=== PATIENT | female | born 2000 | race Caucasian/White ===

== ENCOUNTER 2019-07-12 22:16 | Emergency (ER) | payer SELFPAY ==
[2019-07-12 22:18] VITALS: BP 164/90; PULSE 120; RESP 24; TEMP 36.4; O2SAT 97; BMI 41.0
[2019-07-12 22:28] VITALS: O2SAT 97
--- NOTE | 2019-07-12 22:42 | ED.DCSUM_ITS ---
- ER Visit Summary Date of Service: 07/12/19 Chief Complaint: [Cough and shortness of breath and chest pain] History of Present Illness: The patient is a 18 F [presents the emergency department with cough that she said for 2 days. Patient states that today she is felt short of breath throughout the day. She describes an achy discomfort in the center of her chest that is worse with arm movement as well as breathing. Cough is nonproductive. Patient denies any sick contacts. Patient's had no recent travel. Patient had no recent surgery. Patient states that she used to have history of asthma as a child. She does have an inhaler that she uses as needed. Patient has not had any exposures to novel coronavirus as far she knows. Patient denies sore throat or body aches. Eyes any vomiting or diarrhea.] Patient states that while at home she checked her oxygen saturation with her mother's pulse oximeter and it sat 83%. Physical Examination: [HEENT-PERRLA, EOMI. Cranial nerves II through XII grossly intact. TMs clear. Mucous membranes moist. No adenopathy. Cardiovascular-regular rate and rhythm without murmur or ectopy Lungs-clear to auscultation, chest wall stable without crepitus or subcu emphysema Abdomen-normoactive bowel sounds, soft, nontender, no rebound or rigidity, no peritoneal signs. Extremities-intact ?4, normal range of motion, normal pulses, atraumatic] Test Results: [Influenza screen was negative. Chest x-ray was normal. D-dimer was normal.] Emergency Department Course and Treatment: [Patient received albuterol MDI with 6 puffs. Patient received prednisone 40 mg p.o.] Patient ambulated in the department with pulse ox and she was not hypoxic. Treatment Plan: [Patient will be treated with prednisone. Patient to use albuterol MDI as needed for any wheezing. Patient advised to quarantine self for 2 weeks as I cannot rule out infection with novel coronavirus potentially.] Disposition: [Discharged home in stable condition. Patient advised to return if increasing shortness of breath or condition should worsen anyway.] Impression: [Dyspnea Viral URI Asthma exacerbation] This note was generated with [employer] dictation software. It may contain incorrect words, spelling, and punctuation that were not noted in review of the chart prior to signing ED Disposition - Plan for ED Patient: Referrals: Rama Damon MD [Primary Care Provider] -
--- NOTE | 2019-07-12 23:13 | RAD_ITS ---
STUDY: X-RAY CHEST REASON FOR EXAM: Female, 18 years old. PT C/O SOB, COUGH, MERLOS. HX OF CHILDHOOD ASTHMA TECHNIQUE: PA and lateral chest. COMPARISON: 01/04/2015. FINDINGS: The lungs are clear and expanded. There is no demonstrated pleural abnormality. Normal size heart. Normal mediastinum and alpesh. Normal visualized pulmonary arteries. Normal visualized aortic arch and descending thoracic aorta. Normal visualized thoracic spine. Normal visualized ribs, clavicles, and shoulders. There is no demonstrated abnormality of the visualized soft tissue structures of the upper abdomen. RAD/Chest PA and Lateral IMPRESSION: Normal x-ray examination of the chest. Electronically Signed: Suzi Salazar MD at 23:28 EDT Tel , Service support ,
[2019-07-12 23:50] LABS: D-Dimer Quantitative (DVT/PE) 0.37 FEU/ug/m (0.27-0.49)
--- NOTE | 2019-07-13 00:01 | ED.DEP ---
ED Disposition - Plan for ED Patient: Instructions: ED Upper Resp Infec No Abx Tx, ED Bronchitis Asthmatic Prescriptions: Prednisone [Deltasone] 20 mg PO BID #10 tab Prescription Printed Referrals: Rama Damon MD [Primary Care Provider] - 3-5 Days
[2019-07-13 00:06] VITALS: O2SAT 96
[2019-07-13] MEDS: predniSONE 20 MG Tablet 40 MG PO (00:10)
[2019-07-13 00:13] VITALS: PULSE 108; RESP 15; O2SAT 99
== END 2019-07-13 00:14 | disposition home or self-care (01) ==
PROVIDERS: Emergency Provider Emergency Medicine; PCP Pediatrics
DX: J45.901 Unspecified asthma with (acute) exacerbation (principal); J06.9 Acute upper respiratory infection, unspecified; Z79.51 Long term (current) use of inhaled steroids
CPT/HCPCS: 71046; 85379; 87804; 87807; 99284

== ENCOUNTER 2019-07-28 15:35 | Emergency (ER) | payer SELFPAY ==
[2019-07-28 15:35] VITALS: BP 145/98; PULSE 131; RESP 18; TEMP 37.1; O2SAT 97
[2019-07-28 15:36] VITALS: BP 145/98; PULSE 131; RESP 18; TEMP 37.1; O2SAT 97; BMI 41.0
[2019-07-28 16:04] VITALS: PULSE 105; RESP 14; O2SAT 97
--- NOTE | 2019-07-28 16:24 | ED.VISSUMM ---
- ER Visit Summary Date of Service: 07/28/19 Chief Complaint: Shortness of breath with a dry cough History of Present Illness: The patient is a 18 F who history of asthma and reflux. Patient states she has been short of breath last several days. Also body aches. Denies any fever. No chills. No chest pain. No leg pain or swelling. No history of DVT or PEs. No recent travel, surgery, hospitalization or immobilization. No control pills. Physical Examination: Well-appearing young female no acute distress. Vital signs stable. Pulse ox 97% on room air no signs hypoxia. H EENT exam normal. Neck nontender no lymphadenopathy. Lungs clear to auscultation bilaterally. Heart regular rhythm rate about 115. No murmur. Abdomen soft nontender normal bowel sounds no peritoneal signs. She is moving all 4 extremities.. Calves nontender without edema or cords. Neurologically she is awake alert with no focal motor deficits. Test Results: Chest x-ray portable 1 view shows no acute abnormality. Normal cardiac silhouette. Normal mediastinum. Normal lung queen. Read by myself. Emergency Department Course and Treatment: Patient is a normal exam. She has no risk factors. Repeat exam the patient is resting well at 5:30 PM. She is doing well. Treatment Plan: Follow-up with primary care physician if not improving. Disposition: Discharge Impression: Dyspnea secondary to viral URI This note was generated with [employer] dictation software. It may contain incorrect words, spelling, and punctuation that were not noted in review of the chart prior to signing ED Disposition - Plan for ED Patient: Referrals: Rama Damon MD [Primary Care Provider] -
--- NOTE | 2019-07-28 16:30 | RAD_ITS ---
STUDY: X-RAY CHEST REASON FOR EXAM: Female, 18 years old. C/O SOB, H/A, BODY ACHES, DRY COUGH, DENIES FEVER. TECHNIQUE: Single AP portable view of the chest. COMPARISON: 07/12/2019 FINDINGS: The lungs are clear and expanded. There is no demonstrated pleural abnormality. Normal size heart. Normal mediastinum and alpesh. Normal visualized pulmonary arteries. Normal visualized aortic arch and descending thoracic aorta. Normal visualized thoracic spine. Normal visualized ribs, clavicles, and shoulders. There is no demonstrated abnormality of the visualized soft tissue structures of the upper abdomen. RAD/Chest 1 View (Portable) IMPRESSION: Normal x-ray examination of the chest. Electronically Signed: Luke Chao MD at 17:07 EDT Tel , Service support ,
[2019-07-28 17:00] VITALS: PULSE 94; RESP 18; O2SAT 98
--- NOTE | 2019-07-28 17:38 | ED.DEP ---
ED Disposition - Plan for ED Patient: Disposition: Home or Assisted Living Instructions: ED Dyspnea Referrals: Rama Damon MD [Primary Care Provider] - 3-5 Days if not improving Additional Instructions: Your chest x-ray was normal today. Follow-up with your doctor if not return emergency department if you feel worse.
[2019-07-28 17:45] VITALS: PULSE 91; RESP 18; O2SAT 97
== END 2019-07-28 17:46 | disposition home or self-care (01) ==
PROVIDERS: Emergency Provider Emergency Medicine; PCP Pediatrics
DX: J06.9 Acute upper respiratory infection, unspecified (principal); K21.9 Gastro-esophageal reflux disease without esophagitis; J45.909 Unspecified asthma, uncomplicated; Z79.51 Long term (current) use of inhaled steroids; Z79.899 Other long term (current) drug therapy
CPT/HCPCS: 71045; 99283

== ENCOUNTER → 2020-06-26 10:46 | Outpatient (CLI) | payer MEDICAID, SELFPAY ==
--- NOTE | 2020-06-26 11:01 | RAD_ITS ---
STUDY: X-RAY - LEFT KNEE REASON FOR EXAM: Female, 19 years old. ACUTE KNEE PAIN TECHNIQUE: 3 view(s) of the knee. COMPARISON: None. FINDINGS: Normal visualized distal femur. Normal visualized proximal tibia and fibula. Normal proximal tibiofibular articulation. Normal medial femorotibial compartment. Normal lateral femorotibial compartment. Normal patellofemoral articulation. The soft tissue structures are unremarkable. RAD/Knee 3 Views IMPRESSION: Normal x-ray examination of the knee. Electronically Signed: Luke Chao MD at 11:30 EST Tel , Service support ,
== END ==
PROVIDERS: PCP Pediatrics; Referring Provider Nurse Practitioner Pediatrics; Visit Provider Nurse Practitioner Pediatrics
DX: M25.562 Pain in left knee (principal)
CPT/HCPCS: 73562

== ENCOUNTER 2025-04-09 17:53 | Emergency (ER) | payer SELFPAY ==
[2025-04-09 17:54] VITALS: BP 147/94; PULSE 91; RESP 18; TEMP 37.1; O2SAT 100; BMI 44.9
--- NOTE | 2025-04-09 18:23 | EX.ED.DYSGE1 ---
HPI History of Present Illness Chief Complaint: Nausea/Vomiting Informant: patient Narrative Narrative: Patient 24-year-old female presenting with generalized malaise, nausea and diarrhea. Patient states has been having symptoms for about 2 weeks. She states that her symptoms been progressing. They can be worse at nights. States she feels incredibly fatigued fatigued and weak. She has had a daily headache that she describes as pressure on the top of her head. She has had diarrhea for the past 2 days now. States she is going 4-5 times a day. She notes is not uncommon for her to have diarrhea sometimes it is her mother has IBS as well as diverticulosis. No family history reported of ulcerative colitis or Crohn's disease. She states that she intermittently does feel better when she takes [employer] brand of NyQuil. Has nausea and decreased appetite. Send subjective fevers. Was around her aunts a couple weeks ago who later got sick. She notes her last menstrual period was 03/31 through the . She does not think she be . She notes that she had a miscarriage back in November of this year. Denies any dysuria or hematuria. Notes that she has been urinating slightly less. States that she not been able to take it as much. Came in today because her mother saw her and was concerned and recommend she come to the ER. No cough or difficulty breathing reported. [facility] Medical History (Updated 04/09/25 @ 23:[address] Olivia Steele, ) Neuropathy Dysautonomia GERD (gastroesophageal reflux disease) Home Medications ?Medication ?Instructions ?Recorded ?Last Taken ?Type albuterol sulfate 2.5 mg/3 mL 2.5 mg inhalation Q4H PRN PRN Sob 07/12/19 07/12/19 History (0.083 %) solution for nebulization &/Or Wheezing naproxen 250 mg tablet 250 mg PO DAILY PRN PRN menstrual 07/28/19 Unknown History cycle omeprazole 20 mg capsule,delayed 20 mg PO DAILY 07/28/19 Unknown History release ondansetron 4 mg disintegrating 4 mg PO Q8H PRN PRN Nausea #10 tabs 04/09/25 Unknown Rx tablet Allergy/AdvReac Type Severity Reaction Status Date / Time latex Allergy Swelling Verified 04/09/25 17:53 Surgical History (Updated 04/09/25 @ 18:28 by Heidi Oreilly) H/O eye surgery Social History (Updated 04/09/25 @ 18:28 by Heidi Oreilly) household members: family current occupational status: employed Smoking Status: Never smoker ROS ROS ED Constitutional Constitutional ED: Reports chills and fever(s) ENT ENT ED: Denies ear pain, rhinorrhea or sore throat Cardiovascular Cardiovascular: Denies chest pain or palpitations Respiratory/Chest Respiratory/Chest: Denies cough or dyspnea Gastrointestinal Gastrointestinal: Reports abdominal pain, diarrhea and nausea; Denies vomiting Genitourinary Genitourinary ED: Reports other Details: Decreased urination ; Denies dysuria, hematuria or urinary frequency Musculoskeletal Musculoskeletal: Reports arthralgias and myalgias Integumentary Denies rash Neurologic Neurologic: Reports headache(s), weakness and other Details: States she feels shaky EXAM Physical Exam Const Vital Signs: 04/09/25 17:54 04/09/25 19:53 04/09/25 21:00 Temperature 98.8 F 98.8 F Temperature Source Oral Oral Pulse Rate 91 78 69 Respiratory Rate 18 16 16 Blood Pressure 147/94 H 118/78 Blood Pressure Mean 111 91 Pulse Ox 100 98 100 Oxygen Delivery Method Room Air Room Air 04/09/25 23:00 04/09/25 23:44 Temperature 98.7 F 97.8 F Temperature Source Oral Pulse Rate 70 92 Respiratory Rate 16 18 Blood Pressure 114/76 120/78 Blood Pressure Mean 88 92 Pulse Ox 98 98 Oxygen Delivery Method Room Air Positive well nourished and well developed General Appearance ED: well developed and NAD HEENT Reports TM's clear and dry mucous membranes HEENT Narrative: Normal oropharynx. Normal nares. Tympanic Membrane ED: Yes TM's clear Mouth ED: Yes dry mucous membranes Mouth: dry mucous membranes Eyes PERRL Neck supple and no JVD Chest Wall inspection of chest normal and palpation of chest normal Resp normal respiratory effort and clear to auscultation bilaterally Cardio regular rate, regular rhythm and no murmurs GI normal to inspection, nondistended, normoactive bowel sounds and non-tender Back/Spine no CVA tenderness Extremity normal to inspection Neuro oriented x3 Motor Exam: Negative for general weakness Psych mental status grossly normal Skin no rashes or lesions noted and no wounds MDM MDM MDM Narrative Medical decision making narrative: Patient with over 2 weeks of fatigue, intermittent headaches and generalized weakness. Reports he is developed diarrhea 2 days ago. Patient initially has mildly elevated blood pressure upon arrival. Vital signs otherwise normal. She is nontoxic-appearing. Differential includes electrolyte derangement, IBS, new onset diabetes, ADI, symptomatic anemia, urinary tract infection, and viral syndrome. Her abdomen is soft nontender, she is not a fever and she is a 2 weeks symptom so lower suspicion for acute surgical intra-abdominal process. Workup obtained including CBC, CMP and urinalysis as well as test. CBC shows a mild anemia the hemoglobin 11.6 which is nonspecific but I do not think low enough to cause her degree of symptoms. CMP shows a very mild transaminitis with an AST of 35 and ALT of 58. Again this is only mildly elevated and likely more related to fatty liver or diet. She does not have any tenderness in her right upper quadrant suggestive of acute biliary pathology. Lipase is normal low swished for pancreatitis. Normal kidney function. Glucose is 111 which is normal for nonfasting state. Patient is given IV fluids in the emergency room as well as Tylenol and Zofran. She has no vomiting in the emergency room. On repeat evaluation she states she still not feeling well. Her urinalysis shows contamination but is show 5-10 white blood cells. Her presentation is not consistent with renal colic given that she is not having back pain or really abdominal pain either. Urinalysis is not consistent with infection. Discussed further advanced imaging of her abdomen however at this time I do not think it is indicated emergently and patient is comfortable with this. At this time she did tell me that she has been having intermittent pain on the left side of her chest and her lung. Will add on chest x-ray ensure she is not a secondary pneumonia as well as EKG. Chest x-ray reviewed by myself as radiology does not show any acute process. EKG shows normal sinus rhythm. Patient be discharged home with Zofran. Counseled alternate ibuprofen and Tylenol as needed for symptom and pain control. Counseled that exact cause her symptoms is not clear but she should follow-up with PCP. Is given outpatient referral. Given return precautions. Discharged home in stable condition. Lab Data Attestation: I reviewed the patient's lab results. Labs: Laboratory Results - last 24 hr 04/09/25 04/09/25 18:19 19:41 WBC 8.1 RBC 4.23 Hgb 11.6 L Hct 37.2 MCV 87.9 MCH 27.4 MCHC 31.2 L RDW Std Deviation 48.8 H RDW Coeff of Sue 15.2 H Plt Count 413 MPV 10.6 Immature Gran % (Auto) 0.200 Neut % (Auto) 65.6 Lymph % (Auto) 27.3 Cataño % (Auto) 5.9 Eos % (Auto) 0.4 Baso % (Auto) 0.6 Absolute Neuts (auto) 5.3 Absolute Lymphs (auto) 2.21 Nucleated RBC % 0 Sodium 139 Potassium 3.9 Chloride 103 Carbon Dioxide 24.6 Anion Gap 11 BUN 15 Creatinine 0.76 Estim Creat Clear Calc 169.48 Est GFR (MDRD) Non-Af 111 BUN/Creatinine Ratio 19.4 Glucose 111 H Calcium 9.5 Total Bilirubin < 0.15 AST 35 H ALT 58 H Alkaline Phosphatase 66 Total Protein 7.4 Albumin 4.2 Globulin 3.2 Albumin/Globulin Ratio 1.3 Lipase 22 Urine Color Yellow Urine Clarity Sl. Cloudy Urine pH 6.0 Ur Specific [place] 1.020 Urine Protein 15 H Urine Glucose (UA) Normal Urine Ketones Negative Urine Occult Blood Negative Urine Nitrite Negative Urine Bilirubin Negative Urine Urobilinogen Normal Ur Leukocyte Esterase Negative Urine RBC 5-10 SEEN Urine WBC 0-5 SEEN Ur Squamous Epith Cells 5-10 SEEN Urine Bacteria 1+ Urine Mucus 1+ Urine Test Negative Radiography Chest X-Ray - ED: 2 View, Read by ED Physician, Read by Radiologist and No Acute Disease Diagnostic Testing: Clinical Impression(s) from Imaging Studies Chest X-Ray 04/09/25 22:10 IMPRESSION: Low lung volumes bilaterally likely secondary to patient body habitus. No focal lung consolidation. No pneumothorax. Reading Location: [facility] Rhythm Strip Rhythm Strip: Sinus Rhythm Rate: 73 Ectopy: None EKG Initial EKG: Attestation: I personally reviewed and interpreted this EKG as follows: Interpretation: Sinus Rhythm Comments: Normal sinus rhythm at a rate of 73 bpm Normal axis Normal intervals Normal ST segments Discharge Plan Triage Chief Complaint: Nausea/Vomiting ED Provider: Olivia Steele Dx/Rx/DC Orders Clinical Impression: Nausea, Malaise and fatigue Instructions: ED Viral Syndrome (Adult), ED Weakness Uncertain Cause Prescriptions: New ondansetron 4 mg tablet,disintegrating 4 mg PO Q8H PRN PRN (Reason: Nausea) Qty: 10 0RF No Action albuterol sulfate 2.5 MG/3 ML solution for nebulization 2.5 mg inhalation Q4H PRN PRN (Reason: Sob &/Or Wheezing) naproxen 250 MG tablet 250 mg PO DAILY PRN PRN (Reason: menstrual cycle) omeprazole 20 MG capsule,delayed release(DR/EC) 20 mg PO DAILY Primary Care Provider: Talisha Marroquin NP Referrals: Lara Galarza MD [Med Staff - Active Staff, Internal Medicine] Talisha Marroquin NP, [employer] [Primary Care Provider, Family Practice] Activity Restrictions/Additional Instructions: Workup did not show an obvious cause of your symptoms and was largely reassuring. Please follow-up with family medicine. Please return if you have worsening symptoms. Print Language: Hebrew Disposition Disposition: Home, Self Care Discharge Date/Time: 04/09/25 23:47
[2025-04-09] MEDS: 0.9% Normal Saline (1000mL) 1,000 ML 999 ML IV (18:27)
--- OUTSIDE RECORDS SUMMARY | 2025-04-09 18:40 | XMS RPT_ITS | CCD ---
Author Organization [facility]iniSyky Care Team Providers Care Leather Seasoner Name Role Phone ZEB SO, DR RAMA Silva Primary Care Physician SHAUNNA ZARATEN-JANET, GUDELIA Primary Care Physician ROBIN DEWITT, TALISHA Romero Attending Kathleen MARROQUIN APRN-ONLINE EDITOR, TALISHA Romero Primary Care Kathleen DEWITT, TALISHA Romero Primary Care Physician ROBIN DEWITT, TALISHA Romero Attending Kathleen DEWITT, TALISHA Romero Primary Care Dr. Rama Goodwin MD Primary Care Provider Dr. Rama Carrington MD Referring Provider Morro Merino Attending Provider Morro Merino Attending Unavailable Rama Carrington Referring Unavailable Rama Carrington Primary Care Unavailable Rama Carrington Referring Unavailable Rama Carrington Primary Care Unavailable Morro Merino Attending Unavailable PHYSICIAN, NONE Primary Care Physician Unavailab osmin MARROQUIN APRN-JANET, TALISHA Romero Attending Kathleen labosmin MARROQUIN APRN-JANET, TALISHA Romero Primary Care DR MARCELLA Stark MD Attending Unavailab osmin MARROQUIN APRN-JANET, TALISHA Romero Primary Care Kathleen MARROQUIN APRN-JANET, TALISHA Romero Attending Kathleen labosmin MARROQUIN APRN-ONLINE EDITOR, TALISHA Romero Primary Care Jacquevascooter MARROQUIN APRN-ONLINE EDITOR, TALISHA Romero Attending Kathleen labosmin MARROQUIN APRN-ONLINE EDITOR, TALISHA Romero Primary Care Jacquevai labosmin MARROQUIN APRN-ONLINE EDITOR, TALISHA Romero Attending Jacquevai labosmin MARROQUIN APRN-ONLINE EDITOR, TALISHA Romero Primary Care Kathleen MARROQUIN APRN-JANET, TALISHA Romero Attending Kathleen [facility]QUIN [facility] TALISHA Romero Primary Care Kathleen TEJADA APRN-ONLINE EDITOR, DELIA Attending Unavailcarissa MARROQUIN [employer], TALISHA Romero Primary Care Unavai lable MARROQUIN [employer] AS[employer]ER-ONLINE EDITOR, TALISHA Romero Primary Care Unavai labosmin MARROQUIN [employer]ER-ONLINE EDITOR, TALISHA Romero Attending Kathleen labosmin PHYSICIAN, NONE Primary Care Unavailable TAMEKA SO, KEMAR Coker Attending Unavail gilberto KANG MD, DR NARANJO Attending Unavailab osmin MARROQUIN [employer]ER-ONLINE EDITOR, TALISHA Romero Primary Care Kathleen marshall PHYSICIAN, NONE Primary Care Unavailable ROBIN FELICIANOJANET, TALISHA Romero Attending Kathleen MARROQUIN APRNJANET, TALISHA Romero Primary Care Kathleen LUGO MD, GUERLINE Attending Unavailable Allergies Allergy Classification Reported Allergen(s) Allergy Type Date of Onset Reaction(s) Facility (19 sources) Latex; Translations: [latex] Allergy to substance 0 Swelling [facility] (5 sources) Caroleen Food allergy Stomach ache (finding) [facility] Medications Current Medications Medication Drug Class(es) Dates Sig (Normalized) Sig (Original) albuterol 0.83 mg/ml inhalation solution (2 sources) beta2-Adrenergic Agonist Start: 07-12-2019 take 2.5 mg by inhalation every four hours as needed for wheezing Albuterol Sulfate 2.5 MG/3 ML solution for nebulization Active 2.5 mg inhalation EVERY 4 HOURS NEEDED as needed for Sob &/Or Wheezing July 12, 2019 12:00am amitriptyline hydrochloride 50 mg oral tablet (1 source) Tricyclic Antidepressant Start: 03-07-2022 End: 03-02-2023 amitriptyline 50 mg oral tablet Dose : 50 mg = 1 tab(s), Oral, qHS, # 90 tab(s), 3 Refill(s), [facility]acy: [facility] #[id number], 173.5, cm, 02/21/22 11:16:00 EST, Height Start Date: 03/07/22 Stop Date: 03/02/23 Status: Ordered 24 hr buPROPion hydrochloride 150 mg extended release oral tablet (3 sources) Aminoketone Start: 06-20-2022 End: 06-15-2023 take 1 tablet by mouth every hour, then take 1 tablet by mouth every twenty-four hours buPROPion 150 mg/24 hours (XL) oral tablet, extended release Dose : 150 mg = 1 tab(s), Oral, q24h, # 90 tab(s), 3 Refill(s), Pharmacy: [facility] #[id number], 173.5, cm, 06/20/22 11:19:00 EST, Height, kg, 06/20/22 11:19:00 EST, Dosing Weight Start Date: 06/20/22 Stop Date: 06/15/23 Status: Ordered Start: 02-07-2022 End: 05-08-2022 take 1 tablet by mouth every hour, then take 1 tablet by mouth every twenty-four hours buPROPion 150 mg/24 hours (XL) oral tablet, extended release Dose : 150 mg = 1 tab(s), Oral, q24h, # 30 tab(s), 2 Refill(s), [facility]acy: [facility] #[id number], 173.5, cm, 02/07/22 15:12:00 EDT, Height Start Date: 02/07/22 Stop Date: 05/08/22 Status: Ordered DME MISCellaneous (10 sources) Start: 05-18-2022 DME MISCellane ous See Instructions, pair of compression stockings - either 10-15 or 15-20mmHG, # 1 EA, 0 Refill(s), Lower leg edema, 139.4 Start Date: 05/18/22 Status: Ordered Medication Dispense Status: Completed Quantity: 1.0 Unit: EA Total Allowed Fills: 1 Fills Dispensed: 0 Indications: Localized edema; Start: 05-18-2022 DME MISCellane ous See Instructions, pair of compression stockings - either 10-15 or 15-20mmHG, # 1 EA, 0 Refill(s), Lower leg edema, 139.4 Start Date: 05/18/22 Status: Ordered gabapentin 300 mg oral capsule (1 source) Anti-epileptic Agent Start: 07-28-2024 gabapenti n 300 mg oral capsule Dose : 300 mg = 1 cap(s), Oral, BID, # 60 cap(s), 0 Refill(s), 136.4 Start Date: 07/28/24 Status: Ordered Medication Dispense Status: Completed Quantity: 60.0 Unit: cap(s) Total Allowed Fills: 1 Fills Dispensed: 0 magnesium oxide 400 mg oral tablet (10 sources) Start: 11-22-2023 magnesium oxid e 400 mg oral tablet Dose : 400 mg = 1 tab(s), 0 Refill(s) Start Date: 11/22/23 Status: Ordered Start: 02-21-2022 End: 06-15-2023 magnesium oxide 400 mg oral tablet Dose : 400 mg = 1 tab(s), Oral, qDay, X 90 day(s), # 90 tab(s), 3 Refill(s), 06/15/23 11:53:00 EST, Pharmacy: [facility] #[id number], 173.5, cm, 06/20/22 11:19:00 EST, Height, kg, 06/20/22 11:19:00 EST, Dosing Weight Start Date: 06/20/22 Stop Date: 06/15/23 Status: Ordered metFORMIN hydrochloride 500 mg oral tablet (8 sources) Biguanide Start: 11-22-2023 End: 02-20-2024 MetFORMIN (Eqv-Fortamet) 500 mg oral tablet, EXTENDED RELEASE Dose : 500 mg = 1 tab(s), Oral, qDay, # 90 tab(s), 0 Refill(s), Pharmacy: [facility] #[id number], 175.8, cm, 03/02/23 10:34:00 EST, Height, kg, 03/02/23 10:34:00 EST, Dosing Weight Start Date: 11/22/23 Stop Date: 02/20/24 Status: Ordered Start: 06-20-2022 End: 12-17-2022 MetFORMIN (Eqv-Fortamet) 500 mg oral tablet, EXTENDED RELEASE Dose : 500 mg = 1 tab(s), Oral, qDay, # 90 tab(s), 1 Refill(s), Pharmacy: [facility] #[id number], 173.5, cm, 06/20/22 11:19:00 EST, Height Start Date: 06/20/22 Stop Date: 12/17/22 Status: Ordered naproxen 250 mg oral tablet (5 sources) Nonsteroidal Anti-inflammatory Drug Start: 07-28-2019 take 1 tablet by mouth once daily as needed Naproxen 250 MG tablet Active 250 mg PO DAILY NEEDED as needed for menstrual cycle July 28, 2019 12:00am propranolol hydrochloride 20 mg oral tablet (7 sources) beta-Adrenergic Nii Start: 06-03-2024 End: 02-28-2025 propranolol 20 mg oral tablet Dose : 20 mg = 1 tab(s), Oral, BID, # 180 tab(s), 2 Refill(s), [id number], 175, cm, 06/03/24 12:30:00 EST, Height, kg, 06/03/24 12:30:00 EST, Dosing Weight Start Date: 06/03/24 Stop Date: 02/28/25 Status: Ordered Medication Dispense Status: Completed Quantity: 180.0 Unit: tab(s) Total Allowed Fills: 3 Fills Dispensed: 0 Start: 12-18-2023 propranolol 20 mg oral tablet Dose : 20 mg = 1 tab(s), Oral, BID, # 60 tab(s), 2 Refill(s), Pharmacy: [facility] #[id number], 175, cm, 12/18/23 9:38:00 EDT, Height, kg, 12/18/23 9:38:00 EDT, Dosing Weight Start Date: 12/18/23 Status: Ordered Vitamin D3 50 mcg (2000 intl units) oral capsule (1 source) Start: 11-22-2023 Vitamin D3 50 mcg (2000 intl units) oral capsule Dose : 50 mcg = 1 cap(s), Oral, qDay, # 60 cap(s), 0 Refill(s) Start Date: 11/22/23 Status: Ordered Completed/Discontinued Medications Medication Drug Class(es) Dates Sig (Normalized) Sig (Original) albuterol MDI (90 mcg/inh) CFC free inhalation aerosol (11 sources) Start: 11-22-2023 End: 02-20-2024 take 2 puff(s) by inhalation every four hours as needed for wheezing albuterol MDI (90 mcg/inh) CFC free inhalation aerosol 2 puff(s), Inhalation, q4h, PRN as needed for wheezing, # 18 gram(s), 0 Refill(s), Pharmacy: [facility] #[id number], Shortness of breath Chest tightness, 175.8, cm, 03/02/23 10:34:00 EST, Height, kg, 03/02/23 10:34:00 EST, Dosing Weight Start Date: 11/22/23 Stop Date: 02/20/24 Status: Ordered Medication Dispense Status: Completed Quantity: 18.0 Unit: g Total Allowed Fills: 1 Fills Dispensed: 0 Indications: Shortness of breath; Other chest pain; Start: 11-22-2023 End: 02-20-2024 take 2 puff(s) by inhalation every four hours as needed for wheezing albuterol MDI (90 mcg/inh) CFC free inhalation aerosol 2 puff(s), Inhalation, q4h, PRN as needed for wheezing, # 18 gram(s), 0 Refill(s), Pharmacy: [facility] #[id number], Shortness of breath Chest tightness, 175.8, cm, 03/02/23 10:34:00 EST, Height, kg, 03/02/23 10:34:00 EST, Dosing Weight Start Date: 11/22/23 Stop Date: 02/20/24 Status: Ordered Start: 06-20-2022 End: 06-15-2023 take 2 puff(s) by inhalation every six hours as needed for wheezing albuterol MDI (90 mcg/inh) CFC free inhalation aerosol 2 puff(s), Inhalation, q6hr, PRN as needed for wheezing, # 18 gram(s), 11 Refill(s), Pharmacy: [facility] #[id number], 173.5, cm, 06/20/22 11:19:00 EST, Height Start Date: 06/20/22 Stop Date: 06/15/23 Status: Ordered Start: 02-07-2022 take 1-2 puff(s) by mouth every four hours for wheezing albuterol MDI (90 mcg/inh) CFC free inhalation aerosol inhale 1 to 2 puffs by mouth and INTO THE LUNGS every 4 hours if needed for wheezing Start Date: 02/07/22 Status: Ordered B2-400 oral capsule (11 sources) Start: 07-28-2024 End: 10-26-2024 B2-400 oral capsule Dose : 4 00 mg = 1 cap(s), Oral, qDay, # 90 cap(s), 0 Refill(s), Pharmacy: [facility] #[id number], 175, cm, 06/30/24 12:37:00 EDT, Height, kg, 06/30/24 12:37:00 EDT, Dosing Weight Start Date: 07/28/24 Stop Date: 10/26/24 Status: Ordered Medication Dispense Status: Completed Quantity: 90.0 Unit: cap(s) Total Allowed Fills: 1 Fills Dispensed: 0 Start: 03-02-2023 End: 05-31-2023 B2-400 oral capsule Dose : 4 00 mg = 1 cap(s), Oral, qDay, # 90 cap(s), 0 Refill(s), Pharmacy: [facility] #[id number], 175.8, cm, 03/02/23 10:34:00 EST, Height, kg, 03/02/23 10:34:00 EST, Dosing Weight Start Date: 03/02/23 Stop Date: 05/31/23 Status: Ordered Start: 06-20-2022 End: 06-15-2023 B2-400 oral capsule Dose : 4 00 mg = 1 cap(s), Oral, qDay, # 90 cap(s), 3 Refill(s), Pharmacy: [facility] #[id number], 173.5, cm, 06/20/22 11:19:00 EST, Height, kg, 06/20/22 11:19:00 EST, Dosing Weight Start Date: 06/20/22 Stop Date: 06/15/23 Status: Ordered Start: 02-21-2022 End: 02-16-2023 B2-400 oral capsule Dose : 4 00 mg = 1 cap(s), Oral, qDay, # 90 cap(s), 3 Refill(s), Pharmacy: [facility] #[id number], 173.5, cm, 02/21/22 11:16:00 EST, Height Start Date: 02/21/22 Stop Date: 02/16/23 Status: Ordered ergocalciferol 1.25 mg oral capsule (10 sources) Provitamin D2 Compound Start: 07-28-2024 End: 10-26-2024 ergocalciferol 50,000 intl units (1.25 mg) oral capsule Dose : 50,000 International_Unit = 1 cap(s), Oral, qWeek, # 13 cap(s), 0 Refill(s), Pharmacy: [facility] #[id number], 175, cm, 06/30/24 12:37:00 EDT, Height, kg, 06/30/24 12:37:00 EDT, Dosing Weight Start Date: 07/28/24 Stop Date: 10/26/24 Status: Ordered Medication Dispense Status: Completed Quantity: 13.0 Unit: cap(s) Total Allowed Fills: 1 Fills Dispensed: 0 Start: 12-18-2023 End: 03-17-2024 ergocalciferol 50,000 intl u nits (1.25 mg) oral capsule Dose : 50,000 International_Unit = 1 cap(s), Oral, qWeek, # 13 cap(s), 0 Refill(s), Pharmacy: [facility] #[id number], 175, cm, 12/18/23 9:38:00 EDT, Height, kg, 12/18/23 9:38:00 EDT, Dosing Weight Start Date: 12/18/23 Stop Date: 03/17/24 Status: Ordered Start: 02-21-2022 End: 06-15-2023 ergocalciferol 50 mcg (2000 intl units) oral capsule Dose : 100 mcg = 2 cap(s), Oral, qDay, with food, # 180 cap(s), 3 Refill(s), Pharmacy: [facility] #[id number], 173.5, cm, 06/20/22 11:19:00 EST, Height, kg, 06/20/22 11:19:00 EST, Dosing Weight Start Date: 06/20/22 Stop Date: 06/15/23 Status: Ordered meloxicam 15 mg oral tablet (6 sources) Nonsteroidal Anti-inflammatory Drug Start: 12-04-2023 End: 01-03-2024 meloxicam 15 mg oral tablet Dose : 15 mg = 1 tab(s), Oral, qDay, # 30 tab(s), 0 Refill(s), Pharmacy: [facility] #[id number], Costochondritis, 175.6, cm, 11/29/23 11:13:00 EDT, Height, kg, 11/29/23 11:13:00 EDT, Dosing Weight Start Date: 12/04/23 Stop Date: 01/03/24 Status: Ordered omeprazole 40 mg delayed release oral capsule (13 sources) Proton Pump Inhibitor Start: 07-28-2024 End: 10-26-2024 omeprazole 40 mg oral delayed release capsule Dose : 40 mg = 1 cap(s), Oral, BID, INCREASED DOSE, # 180 cap(s), 0 Refill(s), [facility]acy: [facility] #[id number], Hiatal hernia with GERD, 175, cm, 06/30/24 12:37:00 EDT, Height, kg, 06/30/24 12:37:00 EDT, Dosing Weight Start Date: 07/28/24 Stop Date: 10/26/24 Status: Ordered Medication Dispense Status: Completed Quantity: 180.0 Unit: cap(s) Total Allowed Fills: 1 Fills Dispensed: 0 Indications: Diaphragmatic hernia without obstruction or gangrene; Start: 11-22-2023 End: 05-20-2024 omeprazole 40 mg oral delaye d release capsule Dose : 40 mg = 1 cap(s), Oral, BID, INCREASED DOSE, # 180 cap(s), 1 Refill(s), [facility]acy: [facility] #[id number], Hiatal hernia with GERD, 175.8, cm, 03/02/23 10:34:00 EST, Height, kg, 03/02/23 10:34:00 EST, Dosing Weight Start Date: 11/22/23 Stop Date: 05/20/24 Status: Ordered Start: 07-28-2019 End: 02-16-2023 take 1 capsule by mouth once daily Omeprazole 20 MG capsule,delayed release(DR/EC) Active 20 mg PO DAILY July 28, 2019 12:00am ondansetron 4 mg oral tablet (1 source) Serotonin-3 Receptor Antagonist Start: 07-28-2024 End: 08-01-2024 ondansetron 4 mg oral tablet Dose : 4 mg = 1 tab(s), Oral, q8h, PRN Nausea, # 12 tab(s), 0 Refill(s), Pharmacy: [facility] #[id number], 175, cm, 06/30/24 12:37:00 EDT, Height, kg, 06/30/24 12:37:00 EDT, Dosing Weight Start Date: 07/28/24 Stop Date: 08/01/24 Status: Ordered Medication Dispense Status: Completed Quantity: 12.0 Unit: tab(s) Total Allowed Fills: 1 Fills Dispensed: 0 Problems Active Problems Problem Classification Problem Date Documented Date Episodic/Chronic Abdominal hernia (5 sources) Hernia of abdominal cavity 12-19-2023 Episodic Asthma (13 sources) Mild intermittent asthma 06-20-2022 Chronic Blindness and vision defects (10 sources) Visual disturbance; Translations: [Other visual disturbances] Episodic Cardiac dysrhythmias (20 sources) Palpitations; Translations: [Tachycardia] 02-08-2022 Episodic Coma; stupor; and brain damage (15 sources) Daytime somnolence 02-22-2022 Episodic Diabetes mellitus without complication (20 sources) Hyperglycemia; Translations: [Prediabetes] 02-22-2022 Episodic Disorders of lipid metabolism (16 sources) Hyperlipidemia; Translations: [Hyperlipidemia, unspecified] 02-22-2022 Chronic Headache; including migraine (15 sources) Migraine 02-22-2022 Chronic Malaise and fatigue (10 sources) Fatigue; Translations: [Other fatigue] Episodic Mood disorders (20 sources) Depressive disorder; Translations: [Major depression, single episode] 02-22-2022 Chronic Noninfectious gastroenteritis (15 sources) Chronic diarrhea 02-08-2022 Episodic Nonspecific chest pain (1 source) Chest pain; Translations: [Chest pain, unspecified] Onset: 01-19-2022 Episodic Nutritional deficiencies (15 sources) Vitamin D deficiency 02-22-2022 Chronic Nutritional deficiencies (3 sources) Iron deficiency 04-25-2024 Episodic Other circulatory disease (11 sources) Elevated blood-pressure reading without diagnosis of hypertension 12-18-2023 Episodic Other connective tissue disease (3 sources) Musculoskeletal test abnormal; Translations: [Other symptoms and signs involving the musculoskeletal system] Episodic Other connective tissue disease (8 sources) Muscle weakness of limb 02-01-2024 Episodic Other female genital disorders (1 source) Abnormal uterine bleeding; Translations: [Abnormal uterine and vaginal bleeding, unspecified] Onset: 12-12-2024 Chronic Other female genital disorders (1 source) Abnormal uterine and vaginal bleeding, unspecified; Translations: [Abnormal uterine and vaginal bleeding, unspecified] Onset: 12-12-2024 Chronic Other liver diseases (15 sources) Elevated liver enzymes level 02-22-2022 Episodic Other lower respiratory disease (13 sources) Rib pain 06-20-2022 Episodic Other lower respiratory disease (8 sources) Dyspnea 02-01-2024 Episodic Other nervous system disorders (1 source) Disorder of autonomic nervous system 05-12-2024 Chronic Other nutritional; endocrine; and metabolic disorders (15 sources) Body mass index 40+ - severely obese 02-08-2022 Chronic Other nutritional; endocrine; and metabolic disorders (13 sources) Severe obesity 06-20-2022 Chronic Other skin disorders (15 sources) Acanthosis nigricans 02-08-2022 Episodic Residual codes; unclassified (3 sources) Obstructive sleep apnea syndrome 04-25-2024 Chronic Residual codes; unclassified (14 sources) Edema of lower leg 05-18-2022 Episodic Residual codes; unclassified (13 sources) Did not attend 05-29-2022 Episodic Comment on above: 10/24/22 Unclassified (15 sources) Mental state finding 02-07-2022 Unclassified (8 sources) Non-smoker 02-01-2024 Past or Other Problems Problem Classification Problem Date Documented Date Episodic/Chronic Conditions associated with dizziness or vertigo (13 sources) Dizziness and giddiness; Translations: [Dizziness and giddiness] Onset: 02-18-2024 Episodic Other connective tissue disease (1 source) Other symptoms and signs involving the musculoskeletal system; Translations: [Other symptoms and signs involving the musculoskeletal system] Onset: 02-18-2024 Episodic Results Test Name Value Interpretation Reference Range Facility LABORATORYOrdered By: Mumtaz Frazier on 12-12-2024 HCG ( test) Ql Negative (12/12/24 2:05 PM) Normal AO Manual Urine SS test (u) int Not detected Invalid Interpretation Code AO Manual Urine SS PREGUon 12-12-2024 HCG ( test) Ql (U) Negative Normal [facility] Comment on above: Performed By: #### F E, A1C, IBC, FERR #### [address] [address] test (u) int Not detected Invalid Interpretation Code [facility] Comment on above: Performed By: #### F E, A1C, IBC, FERR #### [address] [address] Office Visit Reporton 2024 Office Visit Report [facility] 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 Allergies latex Allergy (Verified 07/12/19 22:21) Swelling Office Procedures [facility] Billing Sheet Testing Breath Alcohol Test Pre-Employment: Yes Pre-Employment Drug Screen: Yes Pre-Employment PE: Yes 11/20/2436 Date Morro Trejoignac Signature: Date (if applicable) CC: Normal [facility] Urgent Care Visit Reporton 0 11-14-2024 Urgent Care Visit Report [facility] [address], [address] [place] [address] OFFICE VISIT Date of Service: 11/14/24 MR#: [id number] Acct: [id number] Name: ASHLEY MEHTA SEPTEMBER Rep #: [id number] : 2000 Provider: CHANTAL Miller Age/Sex: 24/F Location: [facility] Status: Signed Intake Vital Signs 07/28/19 15:36 Height 5 ft 9 in 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 Please see corresponding scanned documents with today's date. Office Procedures Physical Exam Coding PE Coding Pre-employment PE: Yes Coding Level of Care Code Attention Abdiaziz Diagnoses Encounter for pre-employment health screening examination Z02.1 Assessment and Plan Assessment and Plan (1) Encounter for pre-employment health screening examination: Status: Acute 11/14/24 1545 Date Morro Ramos Signature: Date (if applicable) CC: Normal [facility] METon 07-28-2024 Methylmalonic Acid 177 nmol/L Normal 0-378 [facility] Comment on above: Result Comment: This test was developed and its performance characteristics determined by [facility]. It has not been cleared or approved by the Food and Drug Administration. Performed At: [address] [id number] Obi Perez MD Ph:[phone] Performed By: #### F E, A1C, IBC, FERR #### [address] [address] KEPPRAon 07-24-2024 Levetiracetam Lvl <2.0 Low 10.0-40.0 [facility] Comment on above: Order Comment: lopez d 3 times patient's mailbox is full and needs to come back for recollect. Order is in redraw file. - KK 07/23/2024 0931AM Result Comment: Perf ormed At: [address] [id number] Obi Perez MD Ph:[phone] Performed By: #### F E, A1C, IBC, FERR #### [address] [address] ACEon 07-23-2024 HONEY 46 U/L Normal 14-82 [facility] Comment on above: Result Comment: Perf ormed At: [facility] [address] [id number] Barby Flores PhD Ph:[phone] Performed By: #### F John Paul, A1C, IBC, FERR #### [address] [address] ANAIFSon 07-23-2024 Antinuclear Ab Screen Negative Normal Negative [facility] Comment on above: Result Comment: Anti -nuclear antibody test is used as an aid in diagnosis of systemic autoimmune diseases. Where positive and clinically warranted, follow-up using disease-specific testing is recommended. Low positive titers are not uncommon with advanced age, certain chronic infections, and malignancies among others. Test methodology: Indirect fluorescence immunoassay (IFA) using HEp-2 cells. Performed By: [facility] [address] [place] [address] Die Cast Operator: Jorge Clarke III, M.D. CLIA#: [id number] Performed By: #### F John Paul, A1C, IBC, FERR #### [address] [address] ENDOon 07-23-2024 TTG Ab (IgA) <4.0 Normal <=3.9 [facility] Comment on above: Result Comment: Effe ctive 11/06/2022: Evaluation of Transglutaminase Ab (IgA) results: Negative: Less than 4.0 Weak positive: 4.0 to 10.0 Positive: Greater than 10.0 Transglutaminase Ab is present in approximately 95% to 100% of patients with celiac disease and 80% of patients with dermatitis herpetiformis. The antibody is rarely found in other conditions. Transglutaminase Ab levels will decrease or increase depending on the removal or reintroduction of gluten into the diet. Patients who are IgA deficient develop celiac disease more frequently than individuals who have an intact IgA system. Therefore, gliadin and transglutaminase IgA antibodies may be absent in patients with celiac disease. IgG antibodies to gliadin are especially helpful in IgA deficient patients. These test results were obtained with the [employer] QUANTA Lite R-tTG IgA SILAS. R-tTG IgA values obtained with different manufacturers' assay methods may not be used interchangeably. Performed By: #### F E, A1C, IBC, FERR #### [id number] [place], [place] [address] GLIADon 07-23-2024 Gliadin Ab IgA <20 Normal <=19 [facility] Comment on above: Result Comment: Glia din IgG and IgA Ab Interpretation (effective 03/11/07): Result Units Negative <20 Weak Positive 20-30 Moderate to Strong Positive >30 Both IgG and IgA antibodies to gliadin are present in most patients with celiac disease (CD). However, antibody to gliadin may be present in Crohn's disease, dermatitis herpetiformis or in subjects with no clinical evidence of intestinal disease. In healthy individuals with a family history of CD, the antibodies may precede the clinical onset of disease in approximately 25% of the subjects. Gliadin antibody levels will decrease or increase depending on the removal or reintroduction of gluten into the diet. Patients who are IgA deficient develop celiac disease more frequently than individuals who have an intact IgA system. Therefore, gliadin and transglutaminase IgA antibodies may be absent in patients with celiac disease. IgG antibodies to gliadin are especially helpful in IgA deficient patients. A negative result indicates no gliadin antibody or levels below the negative cut-off of the assay. Results of this assay should be used in conjunction with clinical findings and other serological tests. These test results were obtained with the [employer] 24VA QUANTA Lite Gliadin IgG II and Gliadin IgA II. Gliadin values obtained with different manufacturers' assay methods may not be used interchangeably. Performed By: #### F E, A1C, IBC, FERR #### [address] [address] Gliadin Ab IgG <20 Normal <=19 [facility] Comment on above: Result Comment: Glia din IgG and IgA Ab Interpretation (effective 03/11/07): Result Units Negative <20 Weak Positive 20-30 Moderate to Strong Positive >30 Both IgG and IgA antibodies to gliadin are present in most patients with celiac disease (CD). However, antibody to gliadin may be present in Crohn's disease, dermatitis herpetiformis or in subjects with no clinical evidence of intestinal disease. In healthy individuals with a family history of CD, the antibodies may precede the clinical onset of disease in approximately 25% of the subjects. Gliadin antibody levels will decrease or increase depending on the removal or reintroduction of gluten into the diet. Patients who are IgA deficient develop celiac disease more frequently than individuals who have an intact IgA system. Therefore, gliadin and transglutaminase IgA antibodies may be absent in patients with celiac disease. IgG antibodies to gliadin are especially helpful in IgA deficient patients. A negative result indicates no gliadin antibody or levels below the negative cut-off of the assay. Results of this assay should be used in conjunction with clinical findings and other serological tests. These test results were obtained with the [employer] QUANTA Lite Gliadin IgG II and Gliadin IgA II. Gliadin values obtained with different manufacturers' assay methods may not be used interchangeably. Performed By: #### Fly Coker, A1C, IBC, FERR #### [place] [address] IFESon 07-23-2024 IFES Interpretation Immunofixation electrophoresis of serum shows the presence of only polyclonal immunoglobulins (IgG,A,M,Radom and Lambda), No monoclonal protein detected. Normal [facility] Comment on above: Result Comment: Elec tronically Signed by: MARISSA OHARA MD 07/23/2024 15:16 EDT Performed By: #### Fly Coker, A1C, IBC, FERR #### [place] [address] B12on 07-22-2024 Cobalamin (Vitamin B12) [Mass/Vol] 1072 pg/mL High 211-911 [facility] Comment on above: Performed By: #### Fly Coker, A1C, IBC, FERR #### [address] [address] FOLon 07-22-2024 Folate 7.14 ng/mL Normal 5.38-24.00 [facility] Comment on above: Performed By: #### Fly Coker, A1C, IBC, FERR #### [place] [id number] B1WBon 04-28-2024 Vitamin B1 Whl Bld 112.4 nmol/L Normal 66.5-200.0 [facility] Comment on above: Result Comment: This test was developed and its performance characteristics determined by [employer]. It has not been cleared or approved by the Food and Drug Administration. Performed At: [facility] [id number] Obi Perez MD Ph:[phone] Performed By: #### F E, A1C, IBC, FERR #### [place] [address] LMERLYon 04-26-2024 Lyme Total Antibody KAMRON Negative Normal Negative [facility] Comment on above: Result Comment: Lyme antibodies not detected. Reflex testing is not indicated. No laboratory evidence of infection with B. burgdorferi (Lyme disease). Negative results may occur in patients recently infected (less than or equal to 14 days) with B. burgdorferi. If recent infection is suspected, repeat testing on a new sample collected in 7 to 14 days is recommended. Performed At: [facility] [address] [id number] Barby Flores PhD Ph:[phone] Performed By: #### F E, A1C, IBC, FERR #### [place] [address] .Auto Diffon 04-25-2024 Basophil, Absolute 0.1 10 3/mcL Normal 0.0-0.2 [facility] Comment on above: Performed By: #### F ERR, CBC, ANEU, IBC, PBNP, MG, ADIFF, LIPID #### [place] [address] #### LATRELL #### [address] [address] Basophils/100 WBC (Bld) 0.7 % Normal 0.0-2.5 [facility] Comment on above: Performed By: #### F ERR, CBC, ANEU, IBC, PBNP, MG, ADIFF, LIPID #### [place] [address] #### LATRELL #### [address] [address] Eosinophil, Absolute 0.1 10 3/mcL Normal 0.0-0.7 [facility] Comment on above: Performed By: #### F ERR, CBC, ANEU, IBC, PBNP, MG, ADIFF, LIPID #### [address] [address] #### LATRELL #### [address] [address] Eosinophils/100 WBC (Bld) 0.6 % Normal 0.0-7.0 [facility] Comment on above: Performed By: #### F ERR, CBC, ANEU, IBC, PBNP, MG, ADIFF, LIPID #### [place] [address] #### LATRELL #### [address] [address] Lymphocyte, Absolute 2.3 10 3/mcL Normal 0.9-4.3 [facility] Comment on above: Performed By: #### F ERR, CBC, ANEU, IBC, PBNP, MG, ADIFF, LIPID #### [place] [address] #### LATRELL #### [address] [address] Lymphocytes/100 WBC (Bld) 25.4 % Normal 20.0-40.0 [facility] Comment on above: Performed By: #### F ERR, CBC, ANEU, IBC, PBNP, MG, ADIFF, LIPID #### [place] [address] #### LATRELL #### [address] [address] Monocyte, Absolute 0.5 10 3/mcL Normal 0.1-1.4 [facility] Comment on above: Performed By: #### F ERR, CBC, ANEU, IBC, PBNP, MG, ADIFF, LIPID #### [place] [address] #### LATRELL #### [address] [address] Monocytes/100 WBC (Bld) 5.6 % Normal 2.0-13.0 [facility] Comment on above: Performed By: #### F ERR, CBC, ANEU, IBC, PBNP, MG, ADIFF, LIPID #### [address] [address] #### LATRELL #### [address] [address] Neutrophils/100 WBC (Bld) 67.7 % Normal 50.0-75.0 [facility] Comment on above: Performed By: #### F ERR, CBC, ANEU, IBC, PBNP, MG, ADIFF, LIPID #### [address] [address] #### LATRELL #### [address] [address] .GFRon 04-25-2024 GFR 100 ml/min/1.73sqm Normal [facility] Comment on above: Result Comment: GFR Population mean for , Non- Americans Ages 20-29 = 116 mL/min/1.73 sq.m. Ages 30-39 = 107 mL/min/1.73 sq.m. Ages 40-49 = 99 mL/min/1.73 sq.m. Ages 50-59 = 93 mL/min/1.73 sq.m. Ages 60-69 = 85 mL/min/1.73 sq.m. Ages 70+ = 75 mL/min/1.73 sq.m. Chronic Kidney Disease: Less than 60 mL/min/1.73 square meters End Stage Renal Disease: Less than 15 mL/min/1.73 square meters Performed By: #### F E, A1C, IBC, FERR #### [address] [address] GFR Non- 82 ml/min/1.73sqm Normal [facility] Comment on above: Result Comment: GFR Population mean for , Non- Americans Ages 20-29 = 116 mL/min/1.73 sq.m. Ages 30-39 = 107 mL/min/1.73 sq.m. Ages 40-49 = 99 mL/min/1.73 sq.m. Ages 50-59 = 93 mL/min/1.73 sq.m. Ages 60-69 = 85 mL/min/1.73 sq.m. Ages 70+ = 75 mL/min/1.73 sq.m. Chronic Kidney Disease: Less than 60 mL/min/1.73 square meters End Stage Renal Disease: Less than 15 mL/min/1.73 square meters Performed By: #### F E, A1C, IBC, FERR #### [address] [address] .NEUABSon 04-25-2024 Neutrophil, Absolute 6.2 10 3/mcL Normal 2.3-8.1 [facility] Comment on above: Performed By: #### F ERR, CBC, ANEU, IBC, PBNP, MG, ADIFF, LIPID #### [place] [address] #### LATRELL #### [address] [address] B12on 04-25-2024 Cobalamin (Vitamin B12) [Mass/Vol] 264 pg/mL Normal 211-911 [facility] Comment on above: Performed By: #### F E, A1C, IBC, FERR #### [place] [id number] CBCon 04-25-2024 Erythrocyte distribution width (RBC) [Ratio] 16.2 % High 11.5-15.5 [facility] Comment on above: Performed By: #### F ERR, CBC, ANEU, IBC, PBNP, MG, ADIFF, LIPID #### [place] [address] #### LATRELL #### [address] [address] Hematocrit (Bld) [Volume fraction] 36.6 % Normal 34.0-46.0 [facility] Comment on above: Performed By: #### F ERR, CBC, ANEU, IBC, PBNP, MG, ADIFF, LIPID #### [place] [id number] #### LATRELL #### [address] [address] Hgb 12.1 G/dL Normal 12.0-16.0 [facility] Comment on above: Performed By: #### F ERR, CBC, ANEU, IBC, PBNP, MG, ADIFF, LIPID #### [place] [address] #### LATRELL #### [address] [address] MCH (RBC) [Entitic mass] 28.8 pg Normal 27.0-33.0 [facility] Comment on above: Performed By: #### F ERR, CBC, ANEU, IBC, PBNP, MG, ADIFF, LIPID #### [place] [address] #### LATRELL #### [place] [address] MCHC 33.1 G/dL Normal 32.0-36.0 [facility] Comment on above: Performed By: #### F ERR, CBC, ANEU, IBC, PBNP, MG, ADIFF, LIPID #### [place] [address] #### LATRELL #### [place] [address] MCV (RBC) [Entitic vol] 87.1 fL Normal 80.0-99.0 [facility] Comment on above: Performed By: #### F ERR, CBC, ANEU, IBC, PBNP, MG, ADIFF, LIPID #### [place] [address] #### LATRELL #### [place] [address] Platelet 415 10 3/mcL Normal 150-450 [facility] Comment on above: Performed By: #### F ERR, CBC, ANEU, IBC, PBNP, MG, ADIFF, LIPID #### [place] [address] #### LATRELL #### [place] [address] Platelet mean volume (Bld) [Entitic vol] 8.6 fL Normal 6.6-10.5 [facility] Comment on above: Performed By: #### F ERR, CBC, ANEU, IBC, PBNP, MG, ADIFF, LIPID #### [address] [address] #### LATRELL #### [address] [address] RBC 4.20 10 6/mcL Normal 4.10-5.30 [facility] Comment on above: Performed By: #### F ERR, CBC, ANEU, IBC, PBNP, MG, ADIFF, LIPID #### [address] [address] #### LATRELL #### [address] [address] WBC 9.2 10 3/mcL Normal 4.5-10.8 [facility] Comment on above: Performed By: #### F ERR, CBC, ANEU, IBC, PBNP, MG, ADIFF, LIPID #### [place] [address] #### LATRELL #### [address] [address] CMPon 04-25-2024 Albumin Level 3.7 G/dL Normal 3.5-5.0 [facility] Comment on above: Performed By: #### F E, A1C, IBC, FERR #### [address] [address] Albumin/Globulin [Mass ratio] 1.0 {ratio} Low 1.1-2.5 [facility] Comment on above: Performed By: #### F E, A1C, IBC, FERR #### [address] [address] ALP [Catalytic activity/Vol] 89 U/L Normal 40-135 [facility] Comment on above: Performed By: #### F E, A1C, IBC, FERR #### [address] [address] ALT [Catalytic activity/Vol] 51 U/L Normal 14-59 [facility] Comment on above: Performed By: #### F E, A1C, IBC, FERR #### [address] [address] AST [Catalytic activity/Vol] 28 U/L Normal 10-40 [facility] Comment on above: Performed By: #### F E, A1C, IBC, FERR #### [address] [address] Bili Total 0.5 mg/dL Normal 0.2-1.0 [facility] Comment on above: Result Comment: Use of this assay is not recommended for patients undergoing treatment with eltrombopag due to the potential for falsely elevated results. Performed By: #### F E, A1C, IBC, FERR #### [address] [address] BUN/Creatinine Ratio 12 ratio Normal 7-27 [facility] Comment on above: Performed By: #### F E, A1C, IBC, FERR #### [address] [address] Calcium [Mass/Vol] 9.5 mg/dL Normal 8.4-10.2 [facility] Comment on above: Performed By: #### F E, A1C, IBC, FERR #### [address] [address] Chloride [Moles/Vol] 103 mmol/L Normal 98-107 [facility] Comment on above: Performed By: #### F E, A1C, IBC, FERR #### [address] [address] CO2 [Moles/Vol] 27 mmol/L Normal 22-29 [facility] Comment on above: Performed By: #### F E, A1C, IBC, FERR #### [address] [address] Creatinine [Mass/Vol] 0.85 mg/dL Normal 0.55-1.02 [facility] Comment on above: Result Comment: Test ing performed on Siemens Dimension EXL analyzer using a modified kinetic Xin technique. Performed By: #### F E, A1C, IBC, FERR #### [address] [address] Electrolyte Balance 9.0 mEq/L Normal 4.0-15.0 [facility] Comment on above: Performed By: #### F E, A1C, IBC, FERR #### [address] [address] Globulin 3.7 G/dL Normal [facility] Comment on above: Performed By: #### F E, A1C, IBC, FERR #### [address] [address] Glucose [Mass/Vol] 112 mg/dL High 70-105 [facility] Comment on above: Performed By: #### F E, A1C, IBC, FERR #### [address] [address] Potassium [Moles/Vol] 4.1 mmol/L Normal 3.5-5.1 [facility] Comment on above: Performed By: #### F E, A1C, IBC, FERR #### [address] [address] Sodium [Moles/Vol] 139 mmol/L Normal 136-145 [facility] Comment on above: Performed By: #### F E, A1C, IBC, FERR #### [address] [address] Total Protein 7.4 G/dL Normal 6.4-8.2 [facility] Comment on above: Performed By: #### F E, A1C, IBC, FERR #### [address] [address] Urea nitrogen [Mass/Vol] 10 mg/dL Normal 7-18 [facility] Comment on above: Performed By: #### F E, A1C, IBC, FERR #### [address] [address] CORTon 04-25-2024 Cortisol Level 23.3 mcg/dL Normal [facility] Comment on above: Result Comment: Latrell isol AM Reference Range 6.5-26.0 mcg/dL Cortisol PM Reference Range 3.5-15.0 mcg/dL Performed By: #### F John Paul, A1C, IBC, FERR #### [address] [address] Vivienne 04-25-2024 Ferritin [Mass/Vol] 19.0 ng/mL Normal 8.0-252.0 [facility] Comment on above: Performed By: #### F John Paul, A1C, IBC, FERR #### [place] [id number] [place], [place] [address] IBCon 04-25-2024 TIBC 380 mcg/dL Normal 250-450 [facility] Comment on above: Performed By: #### Fly Coker, A1C, IBC, FERR #### [address] [address] LABORATORYOrdered By: SYSTEM SYSTEM on 04-25-2024 Albumin BCP dye [Mass/Vol] 3.7 G/dL Normal 3.5 - 5.0 G/dL AO ADM SS Albumin/Globulin [Mass ratio] 1.0 {ratio} Low 1.1 - 2.5 ratio AO ADM SS ALP [Catalytic activity/Vol] 89 U/L Normal 40 - 135 U/L AO ADM SS ALT With P-5'-P [Catalytic activity/Vol] 51 U/L Normal 14 - 59 U/L AO ADM SS AST With P-5'-P [Catalytic activity/Vol] 28 U/L Normal 10 - 40 U/L AO ADM SS Bilirubin [Mass/Vol] 0.5 mg/dL Normal 0.2 - 1 .0 mg/dL AO ADM SS Comment on above: Interpretive Data: U se of this assay is not recommended for patients undergoing treatment with eltrombopag due to the potential for falsely elevated results. Calcium [Mass/Vol] 9.5 mg/dL Normal 8.4 - 10. 2 mg/dL AO ADM SS Chloride [Moles/Vol] 103 mmol/L Normal 98 - 10 7 mmol/L AO ADM SS CO2 [Moles/Vol] 27 mmol/L Normal 22 - 29 mmol/L AO ADM SS Cobalamin (Vitamin B12) [Mass/Vol] 264 pg/mL Normal 211 - 911 pg/mL ADM SS Creatinine [Mass/Vol] 0.85 mg/dL Normal 0.55 - 1.02 mg/dL AO ADM SS Comment on above: Interpretive Data: T esting performed on Siemens Dimension EXL analyzer using a modified kinetic Xin technique. Electrolyte Balance 9.0 mEq/L Normal 4.0 - 15 .0 mEq/L AO ADM SS GFR/1.73 sq M.predicted among blacks MDRD (S/P/Bld) [Vol rate/Area] 100 ml/min/1.73sqm Invalid Interpretation Code AO Chemistry S Comment on above: Interpretive Data: GFR Population mean for , Non- Americans Ages 20-29 = 116 mL/min/1.73 sq.m. Ages 30-39 = 107 mL/min/1.73 sq.m. Ages 40-49 = 99 mL/min/1.73 sq.m. Ages 50-59 = 93 mL/min/1.73 sq.m. Ages 60-69 = 85 mL/min/1.73 sq.m. Ages 70+ = 75 mL/min/1.73 sq.m. Chronic Kidney Disease: Less than 60 mL/min/1.73 square meters End Stage Renal Disease: Less than 15 mL/min/1.73 square meters GFR/1.73 sq M.predicted among non-blacks MDRD (S/P/Bld) [Vol rate/Area] 82 ml/min/1.73sqm Invalid Interpretation Code AO Chemistry S Comment on above: Interpretive Data: GFR Population mean for , Non- Americans Ages 20-29 = 116 mL/min/1.73 sq.m. Ages 30-39 = 107 mL/min/1.73 sq.m. Ages 40-49 = 99 mL/min/1.73 sq.m. Ages 50-59 = 93 mL/min/1.73 sq.m. Ages 60-69 = 85 mL/min/1.73 sq.m. Ages 70+ = 75 mL/min/1.73 sq.m. Chronic Kidney Disease: Less than 60 mL/min/1.73 square meters End Stage Renal Disease: Less than 15 mL/min/1.73 square meters Globulin 3.7 G/dL Invalid Interpretation Code AO ADM SS Glucose [Mass/Vol] 112 mg/dL High 70 - 105 mg/dL AO ADM SS Potassium [Moles/Vol] 4.1 mmol/L Normal 3.5 - 5.1 mmol/L AO ADM SS Protein [Mass/Vol] 7.4 G/dL Normal 6.4 - 8.2 G/dL AO ADM SS Sodium [Moles/Vol] 139 mmol/L Normal 136 - 145 mmol/L AO ADM SS Urea nitrogen [Mass/Vol] 10 mg/dL Normal 7 - 18 mg/dL AO ADM SS Urea nitrogen/Creatinine [Mass ratio] 12 ratio Normal 7 - 27 ratio AO ADM SS Basophils (Bld) [#/Vol] 0.1 103/mcL Normal 0.0 - 0.2 10^3/mcL AO Workflow SS Basophils/100 WBC (Bld) 0.7 % Normal 0.0 - 2.5 % AO Workflow SS Cortisol [Mass/Vol] 23.3 ug/dL Invalid Interpretation Code AH ADM SS Comment on above: Interpretive Data: C ortisol AM Reference Range 6.5-26.0 mcg/dL Cortisol PM Reference Range 3.5-15.0 mcg/dL Eosinophil, Absolute 0.1 103/mcL Normal 0.0 - 0 .7 10^3/mcL AO Workflow SS Eosinophils/100 WBC (Bld) 0.6 % Normal 0.0 - 7.0 % AO Workflow SS Erythrocyte distribution width (RBC) [Ratio] 16.2 % High 11.5 - 15.5 % AO Workflow SS Ferritin [Mass/Vol] 19.0 ng/mL Normal 8.0 - 25 2.0 ng/mL AO ADM SS Hematocrit (Bld) [Volume fraction] 36.6 % Normal 34.0 - 46.0 % AO Workflow SS Hemoglobin (Bld) [Mass/Vol] 12.1 G/dL Normal 12.0 - 16.0 G/dL AO Workflow SS Iron binding capacity [Mass/Vol] 380 mcg/dL Normal 250 - 450 mcg/dL AO ADM SS Lymphocytes (Bld) [#/Vol] 2.3 103/mcL Normal 0.9 - 4.3 10^3/mcL AO Workflow SS Lymphocytes/100 WBC (Bld) 25.4 % Normal 20.0 - 40.0 % AO Workflow SS Magnesium [Mass/Vol] 1.9 mg/dL Normal 1.8 - 2 .4 mg/dL AO ADM SS MCH (RBC) [Entitic mass] 28.8 pg Normal 27.0 - 33.0 pg AO Workflow SS MCHC 33.1 G/dL Normal 32.0 - 36.0 G/dL AO Workflow SS MCV (RBC) [Entitic vol] 87.1 fL Normal 80.0 - 99.0 fL AO Workflow SS Monocytes (Bld) [#/Vol] 0.5 103/mcL Normal 0.1 - 1.4 10^3/mcL AO Workflow SS Monocytes/100 WBC (Bld) 5.6 % Normal 2.0 - 13.0 % AO Workflow SS Natriuretic peptide.B prohormone N-Terminal [Mass/Vol] 16 pg/mL Normal 0 - 125 pg/mL AO ADM SS Comment on above: Interpretive Data: N T-proBNP results of less than 300 pg/mL effectively rules out acute congestive heart failure with 99% negative predictive value. Neutrophils (Bld) [#/Vol] 6.2 103/mcL Normal 2.3 - 8.1 10^3/mcL AO Workflow SS Neutrophils/100 WBC (Bld) 67.7 % Normal 50.0 - 75.0 % AO Workflow SS Platelet mean volume (Bld) [Entitic vol] 8.6 fL Normal 6.6 - 10.5 fL AO Workflow SS Platelets (Bld) [#/Vol] 415 103/mcL Normal 150 - 450 10^3/mcL AO Workflow SS RBC (Bld) [#/Vol] 4.20 106/mcL Normal 4.10 - 5.3 0 10^6/mcL AO Workflow SS WBC (Bld) [#/Vol] 9.2 103/mcL Normal 4.5 - 10.8 10^3/mcL AO Workflow SS LABORATORYOrdered By: Reji Thomason on 04-25-2024 Cholesterol [Mass/Vol] 208 mg/dL High 0 - 200 mg/dL AO ADM SS Comment on above: Interpretive Data: C holesterol Reference Interval: Less than 200 Desirable 200-239 Borderline high risk 240 and above High risk Cholesterol in HDL [Mass/Vol] 54 mg/dL Normal 40 - 60 mg/dL AO ADM SS Cholesterol in LDL [Mass/Vol] 129 mg/dL Normal 0 - 130 mg/dL AO ADM SS Triglyceride [Mass/Vol] 125 mg/dL Normal 0 - 150 mg/dL AO ADM SS Comment on above: Interpretive Data: T riglyceride Reference Interval: Less than 150 Normal 150-199 Borderline high risk 200-499 High risk 500 or higher Very high risk LIPIDon 04-25-2024 Cholesterol [Mass/Vol] 208 mg/dL High 0-200 [facility] Comment on above: Result Comment: Chol esterol Reference Interval: Less than 200 Desirable 200-239 Borderline high risk 240 and above High risk Performed By: #### F E, A1C, IBC, FERR #### [address] [address] Cholesterol in HDL [Mass/Vol] 54 mg/dL Normal 40-60 [facility] Comment on above: Performed By: #### F E, A1C, IBC, FERR #### [address] [address] Cholesterol in LDL [Mass/Vol] 129 mg/dL Normal 0-130 [facility] Comment on above: Performed By: #### F E, A1C, IBC, FERR #### [address] [address] Triglyceride [Mass/Vol] 125 mg/dL Normal 0-150 [facility] Comment on above: Result Comment: Trig lyceride Reference Interval: Less than 150 Normal 150-199 Borderline high risk 200-499 High risk 500 or higher Very high risk Performed By: #### F E, A1C, IBC, FERR #### [address] [address] MGon 04-25-2024 Magnesium [Mass/Vol] 1.9 mg/dL Normal 1.8-2.4 [facility] Comment on above: Performed By: #### F E, A1C, IBC, FERR #### [address] [address] PBNPon 04-25-2024 Natriuretic peptide B (Bld) [Mass/Vol] 16 pg/mL Normal 0-125 [facility] Comment on above: Result Comment: NT-p roBNP results of less than 300 pg/mL effectively rules out acute congestive heart failure with 99% negative predictive value. Performed By: #### F E, A1C, IBC, FERR #### [place] [id number] A1Con 02-12-2024 Glucose [Mass/Vol] 108 mg/dL Normal [facility] Comment on above: Result Comment: Aziza mated Average Glucose calculated by equation ((28.7xA1C)-46.7) Estimated average glucose (eAG) is a calculated value from Hemoglobin A1C and is risk control representative of the average blood glucose level in the last 2-3 month period. Normal range: less than 114 mg/dL Performed By: #### F E, A1C, IBC, FERR #### [place] [address] HbA1c (Bld) [Mass fraction] 5.4 % Normal 4.3-6.4 [facility] Comment on above: Performed By: #### F E, A1C, IBC, FERR #### [place] [address] FEon 02-12-2024 Iron [Mass/Vol] 61 ug/dL Normal 50-170 [facility] Comment on above: Performed By: #### F E, A1C, IBC, FERR #### [place] [address] Vivienne 02-12-2024 Ferritin [Mass/Vol] 28.0 ng/mL Normal 8.0-252.0 [facility] Comment on above: Performed By: #### F E, A1C, IBC, FERR #### [place] [address] IBCon 02-12-2024 TIBC 424 mcg/dL Normal 250-450 [facility] Comment on above: Performed By: #### F E, A1C, IBC, FERR #### [place] [address] LABORATORYOrdered By: SYSTEM SYSTEM on 02-12-2024 Ferritin [Mass/Vol] 28.0 ng/mL Normal 8.0 - 25 2.0 ng/mL AO ADM SS Glucose [Mass/Vol] 108 mg/dL Invalid Interpretation Code AO Chemistry S Comment on above: Interpretive Data: E stimated average glucose (eAG) is a calculated value from Hemoglobin A1C and is risk control representative of the average blood glucose level in the last 2-3 month period. Normal range: less than 114 mg/dL HbA1c (Bld) [Mass fraction] 5.4 % Normal 4.3 - 6.4 % AO ADM SS Iron [Mass/Vol] 61 ug/dL Normal 50 - 170 mcg/dL AO ADM SS Iron binding capacity [Mass/Vol] 424 mcg/dL Normal 250 - 450 mcg/dL AO ADM SS ANAIFSon 02-07-2024 Antinuclear Ab Screen Negative Normal Negative [facility] Comment on above: Result Comment: Anti -nuclear antibody test is used as an aid in diagnosis of systemic autoimmune diseases. Where positive and clinically warranted, follow-up using disease-specific testing is recommended. Low positive titers are not uncommon with advanced age, certain chronic infections, and malignancies among others. Test methodology: Indirect fluorescence immunoassay (IFA) using HEp-2 cells. Performed By: [facility] [address] [place] [address] Die Cast Operator: Jorge Clarke III, M.D. CLIA#: [id number] Performed By: #### A NAIFS #### [address] [address] #### RF #### [address] [address] RFon 02-07-2024 Rheumatoid Factor <6.0 Normal <=5.9 [facility] Comment on above: Result Comment: RF I gM Antibody by Enzyme Immunoassay: Negative < or = 6 Positive > 6 A positive result indicates the presence of RF antibodies and suggests the possibility of rheumatoid arthritis. A negative result indicates no RF IgM antibody or levels below the negative cut-off of the assay. Results of this assay should be used in conjunction with clinical findings and other serological tests. These results were obtained with the [employer] [employer] RF IgM SILAS. RF IgM values obtained with different manufacturers' assay methods may not be used interchangeably. The magnitude of the reported IgM levels cannot be correlated to an endpoint titer. Performed By: #### A NAIFS #### [address] [address] #### RF #### [address], [place] [address] MRI BRAIN W/O CONTRASTon MRI BRAIN W/O CONTRAST ORIGINAL EXAMINATION: MRI OF THE BRAIN WITHOUT CONTRAST 02/01/2024 1:12 pm TECHNIQUE: Multiplanar multisequence MRI of the brain was performed without the administration of intravenous contrast. COMPARISON: None. HISTORY: ORDERING SYSTEM PROVIDED HISTORY: Reason for Exam: persistent dizziness, fatigue, bilateral leg weakness, hand tremors, blurred vision, near syncope FINDINGS: INTRACRANIAL STRUCTURES/VENTRICLES : There is no acute infarct. No mass effect or midline shift. No evidence of an acute intracranial hemorrhage. The ventricles and sulci are normal in size and configuration. The sellar/suprasellar regions appear unremarkable. The normal signal voids within the major intracranial vessels appear maintained. ORBITS: The visualized portion of the orbits demonstrate no acute abnormality. SINUSES: Small retention cyst in the left maxillary sinus. The other visualized paranasal sinuses and mastoid air cells demonstrate no acute abnormality. BONES/SOFT TISSUES: The bone marrow signal intensity appears normal. The soft tissues demonstrate no acute abnormality. IMPRESSION: No acute intracranial abnormality. I have personally reviewed the images of this examination and agree with the resident's findings and interpretation. Interpreted by: Iker Syed MD Preliminary Report By: Jose Sanchez Electronically signed By Iker Syed MD Dictated Date: 02/01/2024 1:15:04 PM Prelim Date: 02/01/2024 1:44:44 PM Sign Date: 02/01/2024 1:44:44 PM Ordering Provider: TAILSHA Yen [facility] CRPon 01-25-2024 C-Reactive Protein 0.7 mg/dL High 0.0-0.3 [facility] Comment on above: Performed By: #### F E, A1C, IBC, FERR #### [id number] [place], [place] [address] ESRon 01-25-2024 Erythrocyte Sed Rate 26 mm/hr High 0-20 [facility] Comment on above: Performed By: #### F E, A1C, IBC, FERR #### [id number] [place], [place] [address] LABORATORYOrdered By: SYSTEM SYSTEM on 01-25-2024 CRP [Mass/Vol] 0.7 mg/dL High 0.0 - 0.3 mg/dL AO ADM SS LABORATORYOrdered By: Mumtaz Frazier on 01-25-2024 ESR Photometric method (Bld) [Velocity] 26 mm/hr High 0 - 20 mm/hr AO Man Heme SS LABORATORYOrdered By: Tablo SYSTEM on 12-13-2023 25-hydroxyvitamin D3 [Mass/Vol] 21.7 ng/mL Invalid Interpretation Code AO ADM SS Comment on above: Interpretive Data: I nterpretive Values Based on Total 25(OH) Vitamin D: Deficient <20 ng/mL Insufficient 20 - <30 ng/mL Sufficient 30-100 ng/mL Albumin BCP dye [Mass/Vol] 3.6 G/dL Normal 3.5 - 5.0 G/dL AO ADM SS Albumin/Globulin [Mass ratio] 0.9 {ratio} Low 1.1 - 2.5 ratio AO ADM SS ALP [Catalytic activity/Vol] 96 U/L Normal 40 - 135 U/L AO ADM SS ALT With P-5'-P [Catalytic activity/Vol] 46 U/L Normal 14 - 59 U/L AO ADM SS AST With P-5'-P [Catalytic activity/Vol] 18 U/L Normal 10 - 40 U/L AO ADM SS Bilirubin [Mass/Vol] 0.5 mg/dL Normal 0.2 - 1 .0 mg/dL AO ADM SS Comment on above: Interpretive Data: U se of this assay is not recommended for patients undergoing treatment with eltrombopag due to the potential for falsely elevated results. Calcium [Mass/Vol] 9.6 mg/dL Normal 8.4 - 10. 2 mg/dL AO ADM SS Chloride [Moles/Vol] 100 mmol/L Normal 98 - 10 7 mmol/L AO ADM SS CO2 [Moles/Vol] 29 mmol/L Normal 22 - 29 mmol/L AO ADM SS Creatinine [Mass/Vol] 0.86 mg/dL Normal 0.55 - 1.02 mg/dL AO ADM SS Comment on above: Interpretive Data: T esting performed on Siemens Dimension EXL analyzer using a modified kinetic Xin technique. Electrolyte Balance 7.0 mEq/L Normal 4.0 - 15 .0 mEq/L AO ADM SS GFR/1.73 sq M.predicted among blacks MDRD (S/P/Bld) [Vol rate/Area] 98 ml/min/1.73sqm Invalid Interpretation Code AO Chemistry S Comment on above: Interpretive Data: GFR Population mean for , Non- Americans Ages 20-29 = 116 mL/min/1.73 sq.m. Ages 30-39 = 107 mL/min/1.73 sq.m. Ages 40-49 = 99 mL/min/1.73 sq.m. Ages 50-59 = 93 mL/min/1.73 sq.m. Ages 60-69 = 85 mL/min/1.73 sq.m. Ages 70+ = 75 mL/min/1.73 sq.m. Chronic Kidney Disease: Less than 60 mL/min/1.73 square meters End Stage Renal Disease: Less than 15 mL/min/1.73 square meters GFR/1.73 sq M.predicted among non-blacks MDRD (S/P/Bld) [Vol rate/Area] 81 ml/min/1.73sqm Invalid Interpretation Code AO Chemistry S Comment on above: Interpretive Data: GFR Population mean for , Non- Americans Ages 20-29 = 116 mL/min/1.73 sq.m. Ages 30-39 = 107 mL/min/1.73 sq.m. Ages 40-49 = 99 mL/min/1.73 sq.m. Ages 50-59 = 93 mL/min/1.73 sq.m. Ages 60-69 = 85 mL/min/1.73 sq.m. Ages 70+ = 75 mL/min/1.73 sq.m. Chronic Kidney Disease: Less than 60 mL/min/1.73 square meters End Stage Renal Disease: Less than 15 mL/min/1.73 square meters Globulin 3.8 G/dL Invalid Interpretation Code AO ADM SS Glucose [Mass/Vol] 107 mg/dL High 70 - 105 mg/dL AO ADM SS Potassium [Moles/Vol] 4.7 mmol/L Normal 3.5 - 5.1 mmol/L AO ADM SS Protein [Mass/Vol] 7.4 G/dL Normal 6.4 - 8.2 G/dL AO ADM SS Sodium [Moles/Vol] 136 mmol/L Normal 136 - 145 mmol/L AO ADM SS T4 [Mass/Vol] 7.2 ug/dL Normal 4.5 - 10.9 mcg/dL AH ADM SS Comment on above: Interpretive Data: * *Note - New Reference Range in effect 19 TSH Qn 1.58 m[IU]/L Normal 0.36 - 3.74 mcIU/mL AO ADM SS Urea nitrogen [Mass/Vol] 13 mg/dL Normal 7 - 18 mg/dL AO ADM SS Urea nitrogen/Creatinine [Mass ratio] 15 ratio Normal 7 - 27 ratio AO ADM SS LABORATORYOrdered By: Suresh Elliott on 12-13-2023 Cholesterol [Mass/Vol] 248 mg/dL High 0 - 200 mg/dL AO ADM SS Comment on above: Interpretive Data: C holesterol Reference Interval: Less than 200 Desirable 200-239 Borderline high risk 240 and above High risk Cholesterol in HDL [Mass/Vol] 63 mg/dL High 40 - 60 mg/dL AO ADM SS Cholesterol in LDL [Mass/Vol] 154 mg/dL High 0 - 130 mg/dL AO ADM SS Triglyceride [Mass/Vol] 153 mg/dL High 0 - 150 mg/dL AO ADM SS Comment on above: Interpretive Data: T riglyceride Reference Interval: Less than 150 Normal 150-199 Borderline high risk 200-499 High risk 500 or higher Very high risk XR CHEST 2 VIEWSon 4 XR CHEST 2 VIEWS ORIGINAL EXAMINATION: TWO XRAY VIEWS OF THE CHEST TECHNIQUE: CHEST AP/PA and LATERAL COMPARISON: X-ray of the chest from January 19, 2022. HISTORY: ORDERING SYSTEM PROVIDED HISTORY: Reason for Exam: aspiration of stomach acid, cough, shortness of breath, chest tightness FINDINGS: Cardiomediastinal silhouette is unremarkable. There is no consolidation, pneumothorax, pleural effusion, vascular congestion. No signs of sequela of aspiration. No acute fractures or aggressive osseous lesions. No significant soft tissue abnormalities. IMPRESSION: Normal exam. I have personally reviewed the images of this examination and agree with the resident's findings and interpretation. Interpreted by: Zackery Reeder MD Preliminary Report By: Jerry Sherwood MD Electronically signed By Zackery Reeder MD Dictated Date: 11/26/2023 9:40:21 AM Prelim Date: 11/26/2023 6:11:46 PM Sign Date: 11/26/2023 6:11:46 PM Ordering Provider: TALISHA MARROQUIN On License Of [facility] ([place]) .Auto Diffon 11-22-2023 Basophil, Absolute 0.1 10 3/mcL Normal 0.0-0.2 [facility] ([place]) Comment on above: Performed By: #### C BC, ANEU, DIMER, CMP, GFR, ADIFF #### [address] [address] Basophils/100 WBC (Bld) 0.6 % Normal 0.0-2.5 [facility] ([place]) Comment on above: Performed By: #### C BC, ANEU, DIMER, CMP, GFR, ADIFF #### [address] [address] Eosinophil, Absolute 0.0 10 3/mcL Normal 0.0-0.4 [facility] ([place]) Comment on above: Performed By: #### C BC, ANEU, DIMER, CMP, GFR, ADIFF #### [address] [address] Eosinophils/100 WBC (Bld) 0.3 % Normal 0.0-7.0 [facility] ([place]) Comment on above: Performed By: #### C BC, ANEU, DIMER, CMP, GFR, ADIFF #### [address] [address] Lymphocyte, Absolute 2.4 10 3/mcL Normal 0.8-3.9 [facility] ([place]) Comment on above: Performed By: #### C BC, ANEU, DIMER, CMP, GFR, ADIFF #### [address] [address] Lymphocytes/100 WBC (Bld) 23.3 % Normal 10.0-50.0 [facility] ([place]) Comment on above: Performed By: #### C BC, ANEU, DIMER, CMP, GFR, ADIFF #### [address] [address] Monocyte, Absolute 0.7 10 3/mcL Normal 0.2-1.0 [facility] ([place]) Comment on above: Performed By: #### C BC, ANEU, DIMER, CMP, GFR, ADIFF #### [address] [address] Monocytes/100 WBC (Bld) 6.7 % Normal 1.7-13.0 [facility] ([place]) Comment on above: Performed By: #### C BC, ANEU, DIMER, CMP, GFR, ADIFF #### [address] [address] Neutrophils/100 WBC (Bld) 69.1 % Normal 37.0-80.0 [facility] ([place]) Comment on above: Performed By: #### C BC, ANEU, DIMER, CMP, GFR, ADIFF #### [address] [address] .GFRon 11-22-2023 GFR 77 ml/min/1.73sqm Normal [facility] ([place]) Comment on above: Result Comment: GFR Population mean for , Non- Americans Ages 20-29 = 116 mL/min/1.73 sq.m. Ages 30-39 = 107 mL/min/1.73 sq.m. Ages 40-49 = 99 mL/min/1.73 sq.m. Ages 50-59 = 93 mL/min/1.73 sq.m. Ages 60-69 = 85 mL/min/1.73 sq.m. Ages 70+ = 75 mL/min/1.73 sq.m. Chronic Kidney Disease: Less than 60 mL/min/1.73 square meters End Stage Renal Disease: Less than 15 mL/min/1.73 square meters Performed By: #### C BC, ANEU, DIMER, CMP, GFR, ADIFF #### [address] [address] GFR Non- 64 ml/min/1.73sqm Normal [facility] ([place]) Comment on above: Result Comment: GFR Population mean for , Non- Americans Ages 20-29 = 116 mL/min/1.73 sq.m. Ages 30-39 = 107 mL/min/1.73 sq.m. Ages 40-49 = 99 mL/min/1.73 sq.m. Ages 50-59 = 93 mL/min/1.73 sq.m. Ages 60-69 = 85 mL/min/1.73 sq.m. Ages 70+ = 75 mL/min/1.73 sq.m. Chronic Kidney Disease: Less than 60 mL/min/1.73 square meters End Stage Renal Disease: Less than 15 mL/min/1.73 square meters Performed By: #### C BC, ANEU, DIMER, CMP, GFR, ADIFF #### [address] [address] .NEUABSon 11-22-2023 Neutrophil, Absolute 7.1 10 3/mcL High 2.9-6.2 [facility] ([place]) Comment on above: Performed By: #### C BC, ANEU, DIMER, CMP, GFR, ADIFF #### [address] [address] CBCon 11-22-2023 Erythrocyte distribution width (RBC) [Ratio] 16.1 % High 11.5-14.5 [facility] ([place]) Comment on above: Performed By: #### C BC, ANEU, DIMER, CMP, GFR, ADIFF #### [address] [address] Hematocrit (Bld) [Volume fraction] 37.4 % Normal 37.0-47.0 [facility] ([place]) Comment on above: Performed By: #### C BC, ANEU, DIMER, CMP, GFR, ADIFF #### [address] [address] Hgb 12.1 G/dL Normal 12.0-16.0 [facility] ([place] Comment on above: Performed By: #### C BC, ANEU, DIMER, CMP, GFR, ADIFF #### [address] [address] MCH (RBC) [Entitic mass] 28.0 pg Normal 27.0-31.2 [facility] ([place]) Comment on above: Performed By: #### C BC, ANEU, DIMER, CMP, GFR, ADIFF #### [address] [address] MCHC 32.3 G/dL Low 33.0-37.0 [facility] ([place] Comment on above: Performed By: #### C BC, ANEU, DIMER, CMP, GFR, ADIFF #### [address] [address] MCV (RBC) [Entitic vol] 86.5 fL Normal 80.0-94.0 [facility] ([place] Comment on above: Performed By: #### C BC, ANEU, DIMER, CMP, GFR, ADIFF #### [address] [address] Platelet 417 10 3/mcL High 130-400 [facility] ([place] Comment on above: Performed By: #### C BC, ANEU, DIMER, CMP, GFR, ADIFF #### [address] [address] Platelet mean volume (Bld) [Entitic vol] 8.9 fL Normal 7.4-10.4 [facility] ([place] Comment on above: Performed By: #### C BC, ANEU, DIMER, CMP, GFR, ADIFF #### [address] [address] RBC 4.32 10 6/mcL Normal 4.20-5.40 [facility] ([place]) Comment on above: Performed By: #### C BC, ANEU, DIMER, CMP, GFR, ADIFF #### [address] [address] WBC 10.2 10 3/mcL Normal 4.6-10.8 [facility] ([place] Comment on above: Performed By: #### C BC, ANEU, DIMER, CMP, GFR, ADIFF #### [address] [address] CMPon 11-22-2023 Albumin Level 3.6 G/dL Normal 3.5-5.0 [facility] ([place] Comment on above: Performed By: #### C BC, ANEU, DIMER, CMP, GFR, ADIFF #### [address] [address] Albumin/Globulin [Mass ratio] 0.9 {ratio} Low 1.1-2.5 [facility] ([place] Comment on above: Performed By: #### C BC, ANEU, DIMER, CMP, GFR, ADIFF #### [address] [address] ALP [Catalytic activity/Vol] 91 U/L Normal 40-135 [facility] ([place] Comment on above: Performed By: #### C BC, ANEU, DIMER, CMP, GFR, ADIFF #### [address] [address] ALT [Catalytic activity/Vol] 34 U/L Normal 14-59 [facility] ([place] Comment on above: Performed By: #### C BC, ANEU, DIMER, CMP, GFR, ADIFF #### [address] [address] AST [Catalytic activity/Vol] 14 U/L Normal 10-40 [facility] ([place] Comment on above: Performed By: #### C BC, ANEU, DIMER, CMP, GFR, ADIFF #### [address] [address] Bili Total 0.2 mg/dL Normal 0.2-1.0 [facility] ([place]) Comment on above: Result Comment: Use of this assay is not recommended for patients undergoing treatment with eltrombopag due to the potential for falsely elevated results. Performed By: #### C BC, ANEU, DIMER, CMP, GFR, ADIFF #### [address] [address] BUN/Creatinine Ratio 11 ratio Normal 7-27 [facility] ([place]) Comment on above: Performed By: #### C BC, ANEU, DIMER, CMP, GFR, ADIFF #### [address] [address] Calcium [Mass/Vol] 9.3 mg/dL Normal 8.4-10.2 [facility] ([place]) Comment on above: Performed By: #### C BC, ANEU, DIMER, CMP, GFR, ADIFF #### [address] [address] Chloride [Moles/Vol] 103 mmol/L Normal 98-107 [facility] ([place]) Comment on above: Performed By: #### C BC, ANEU, DIMER, CMP, GFR, ADIFF #### [address] [address] CO2 [Moles/Vol] 29 mmol/L Normal 22-29 [facility] ([place] Comment on above: Performed By: #### C BC, ANEU, DIMER, CMP, GFR, ADIFF #### [address] [address] Creatinine [Mass/Vol] 1.06 mg/dL High 0.55-1.02 [facility] ([place]) Comment on above: Performed By: #### C BC, ANEU, DIMER, CMP, GFR, ADIFF #### [address] [address] Electrolyte Balance 8.0 mEq/L Normal 4.0-15.0 [facility] ([place]) Comment on above: Performed By: #### C BC, ANEU, DIMER, CMP, GFR, ADIFF #### [address] [address] Globulin 3.8 G/dL Normal [facility] ([place] Comment on above: Performed By: #### C BC, ANEU, DIMER, CMP, GFR, ADIFF #### [address] [address] Glucose [Mass/Vol] 96 mg/dL Normal 70-105 [facility] ([place]) Comment on above: Performed By: #### C BC, ANEU, DIMER, CMP, GFR, ADIFF #### [address] [address] Potassium [Moles/Vol] 4.5 mmol/L Normal 3.5-5.1 [facility] ([place]) Comment on above: Performed By: #### C BC, ANEU, DIMER, CMP, GFR, ADIFF #### [address] [address] Sodium [Moles/Vol] 140 mmol/L Normal 136-145 [facility] ([place]) Comment on above: Performed By: #### C BC, ANEU, DIMER, CMP, GFR, ADIFF #### [id number] [place], [place] [address] Total Protein 7.4 G/dL Normal 6.4-8.2 [facility] ([place] Comment on above: Performed By: #### C BC, ANEU, DIMER, CMP, GFR, ADIFF #### [address] [address] Urea nitrogen [Mass/Vol] 12 mg/dL Normal 7-18 [facility] ([place]) Comment on above: Performed By: #### C BC, ANEU, DIMER, CMP, GFR, ADIFF #### [address] [address] DIMERon 11-22-2023 D-Dimer <200 Normal 0-230 [facility] ([place]) Comment on above: Result Comment: DDN: Results reported in D-DU ng/mL. Negative for D-dimer. DVT/PE is highly unlikely. Note: False negative results may be seen in patients on anticoagulant therapy. The result of the D-Dimer test should be evaluated in the context of all the clinical and laboratory data available. In those instances where the laboratory result does not agree with the clinical evaluation, additional tests should be performed accordingly. If the D-Dimer result is used to exclude DVT or PE, the recommended cutoff value is less than 230 ng/mL. The D-Dimer result should not be used alone to rule in DVT/PE, but should be used in conjunction with a clinical pretest probability (PTP)assessment model to exclude venous thromboembolism (VTE) in outpatients suspected of deep venous thrombosis (DVT) and pulmonary embolism (PE). Performed By: #### C BC, ANEU, DIMER, CMP, GFR, ADIFF #### [id number] [place], [place] [address] LABORATORYOrdered By: Tablo SYSTEM on 07-12-2022 Albumin BCP dye [Mass/Vol] 3.6 G/dL Invalid Interpretation Code 3.5 - 5.0 G/dL AO ADM SS Albumin/Globulin [Mass ratio] 1.0 {ratio} Invalid Interpretation Code 1.1 - 2.5 ratio AO ADM SS ALP [Catalytic activity/Vol] 94 U/L Invalid Interpretation Code 40 - 135 U/L AO ADM SS ALT With P-5'-P [Catalytic activity/Vol] 46 U/L Invalid Interpretation Code 14 - 59 U/L AO ADM SS Amylase [Catalytic activity/Vol] 54 U/L Invalid Interpretation Code 25 - 115 U/L AO ADM SS AST With P-5'-P [Catalytic activity/Vol] 20 U/L Invalid Interpretation Code 10 - 40 U/L AO ADM SS Bilirubin [Mass/Vol] 0.3 mg/dL Invalid Interpretation Code 0.2 - 1.0 mg/dL AO ADM SS Calcium [Mass/Vol] 8.9 mg/dL Invalid Interpretation Code 8.4 - 10.2 mg/dL AO ADM SS Chloride [Moles/Vol] 102 mmol/L Invalid Interpretation Code 98 - 107 mmol/L AO ADM SS CO2 [Moles/Vol] 29 mmol/L Invalid Interpretation Code 22 - 29 mmol/L AO ADM SS Creatinine [Mass/Vol] 0.82 mg/dL Invalid Interpretation Code 0.55 - 1.02 mg/dL AO ADM SS Electrolyte Balance 8.0 mEq/L Invalid Interpretation Code 4.0 - 15.0 mEq/L AO ADM SS Free T4 [Mass/Vol] 1.00 ng/dL Invalid Interpretation Code 0.76 - 1.46 ng/dL AO ADM SS GFR 106 ml/min/1.73sqm Invalid Interpretation Code AO Chemistry S GFR Non- 87 ml/min/1.73sqm Invalid Interpretation Code AO Chemistry S Globulin 3.5 G/dL Invalid Interpretation Code AO ADM SS Glucose [Mass/Vol] 104 mg/dL Invalid Interpretation Code 70 - 105 mg/dL AO ADM SS HbA1c (Bld) [Mass fraction] 5.5 % Invalid Interpretation Code 4.3 - 6.4 % AO ADM SS Lipase [Catalytic activity/Vol] 22 U/L Invalid Interpretation Code 16 - 77 U/L AO ADM SS Potassium [Moles/Vol] 4.2 mmol/L Invalid Interpretation Code 3.5 - 5.1 mmol/L AO ADM SS Protein [Mass/Vol] 7.1 G/dL Invalid Interpretation Code 6.4 - 8.2 G/dL AO ADM SS Sodium [Moles/Vol] 139 mmol/L Invalid Interpretation Code 136 - 145 mmol/L AO ADM SS TSH Qn 4.42 m[IU]/L Invalid Interpretation Code 0.36 - 3.74 mcIU/mL AO ADM SS Urea nitrogen [Mass/Vol] 13 mg/dL Invalid Interpretation Code 7 - 18 mg/dL AO ADM SS Urea nitrogen/Creatinine [Mass ratio] 16 ratio Invalid Interpretation Code 7 - 27 ratio AO ADM SS Vit. D 25-Hydroxy 34.3 ng/mL Invalid Interpretation Code AO ADM SS LABORATORYOrdered By: Suresh Elliott on 07-12-2022 Basophil, Absolute 0.1 103/mcL Invalid Interpretation Code 0.0 - 0.2 10^3/mcL AO Workflow SS Basophils/100 WBC (Bld) 1.1 % Invalid Interpretation Code 0.0 - 2.5 % AO Workflow SS Eosinophil, Absolute 0.1 103/mcL Invalid Interpretation Code 0.0 - 0.4 10^3/mcL AO Workflow SS Eosinophils/100 WBC (Bld) 0.5 % Invalid Interpretation Code 0.0 - 7.0 % AO Workflow SS Erythrocyte distribution width (RBC) [Ratio] 14.7 % Invalid Interpretation Code 11.5 - 14.5 % AO Workflow SS Hematocrit (Bld) [Volume fraction] 36.5 % Invalid Interpretation Code 37.0 - 47.0 % AO Workflow SS Hemoglobin (Bld) [Mass/Vol] 12.0 G/dL Invalid Interpretation Code 12.0 - 16.0 G/dL AO Workflow SS Lymphocyte, Absolute 2.8 103/mcL Invalid Interpretation Code 0.8 - 3.9 10^3/mcL AO Workflow SS Lymphocytes/100 WBC (Bld) 26.7 % Invalid Interpretation Code 10.0 - 50.0 % AO Workflow SS MCH (RBC) [Entitic mass] 28.9 pg Invalid Interpretation Code 27.0 - 31.2 pg AO Workflow SS MCHC 33.0 G/dL Invalid Interpretation Code 33.0 - 37.0 G/dL AO Workflow SS MCV (RBC) [Entitic vol] 87.4 fL Invalid Interpretation Code 80.0 - 94.0 fL AO Workflow SS Monocyte, Absolute 0.6 103/mcL Invalid Interpretation Code 0.2 - 1.0 10^3/mcL AO Workflow SS Monocytes/100 WBC (Bld) 6.1 % Invalid Interpretation Code 1.7 - 13.0 % AO Workflow SS Neutrophil, Absolute 6.9 103/mcL Invalid Interpretation Code 2.9 - 6.2 10^3/mcL AO Workflow SS Neutrophils/100 WBC (Bld) 65.6 % Invalid Interpretation Code 37.0 - 80.0 % AO Workflow SS Platelet mean volume (Bld) [Entitic vol] 8.1 fL Invalid Interpretation Code 7.4 - 10.4 fL AO Workflow SS Platelets (Bld) [#/Vol] 407 103/mcL Invalid Interpretation Code 130 - 400 10^3/mcL AO Workflow SS RBC (Bld) [#/Vol] 4.18 106/mcL Invalid Interpretation Code 4.20 - 5.40 10^6/mcL AO Workflow SS WBC (Bld) [#/Vol] 10.6 103/mcL Invalid Interpretation Code 4.6 - 10.8 10^3/mcL AO Workflow SS LABORATORYOrdered By: Nery Pineda on 07-12-2022 Cholesterol [Mass/Vol] 206 mg/dL Invalid Interpretation Code 0 - 200 mg/dL AO ADM SS Cholesterol in HDL [Mass/Vol] 52 mg/dL Invalid Interpretation Code 40 - 60 mg/dL AO ADM SS Cholesterol in LDL [Mass/Vol] 132 mg/dL Invalid Interpretation Code 0 - 130 mg/dL AO ADM SS Triglyceride [Mass/Vol] 109 mg/dL Invalid Interpretation Code 0 - 150 mg/dL AO ADM SS LABORATORYOrdered By: SYSTEM SYSTEM on 05-18-2022 Albumin BCP dye [Mass/Vol] 3.6 G/dL Invalid Interpretation Code 3.5 - 5.0 G/dL AO ADM SS Albumin/Globulin [Mass ratio] 1.0 {ratio} Invalid Interpretation Code 1.1 - 2.5 ratio AO ADM SS ALP [Catalytic activity/Vol] 92 U/L Invalid Interpretation Code 40 - 135 U/L AO ADM SS ALT With P-5'-P [Catalytic activity/Vol] 82 U/L Invalid Interpretation Code 14 - 59 U/L AO ADM SS AST With P-5'-P [Catalytic activity/Vol] 25 U/L Invalid Interpretation Code 10 - 40 U/L AO ADM SS Bilirubin [Mass/Vol] 0.4 mg/dL Invalid Interpretation Code 0.2 - 1.0 mg/dL AO ADM SS Calcium [Mass/Vol] 8.8 mg/dL Invalid Interpretation Code 8.4 - 10.2 mg/dL AO ADM SS Chloride [Moles/Vol] 104 mmol/L Invalid Interpretation Code 98 - 107 mmol/L AO ADM SS CO2 [Moles/Vol] 27 mmol/L Invalid Interpretation Code 22 - 29 mmol/L AO ADM SS Creatinine [Mass/Vol] 0.79 mg/dL Invalid Interpretation Code 0.55 - 1.02 mg/dL AO ADM SS Electrolyte Balance 9.0 mEq/L Invalid Interpretation Code 4.0 - 15.0 mEq/L AO ADM SS GFR 110 ml/min/1.73sqm Invalid Interpretation Code AO Chemistry S GFR Non- 91 ml/min/1.73sqm Invalid Interpretation Code AO Chemistry S Globulin 3.6 G/dL Invalid Interpretation Code AO ADM SS Glucose [Mass/Vol] 118 mg/dL Invalid Interpretation Code 70 - 105 mg/dL AO ADM SS Potassium [Moles/Vol] 4.1 mmol/L Invalid Interpretation Code 3.5 - 5.1 mmol/L AO ADM SS Protein [Mass/Vol] 7.2 G/dL Invalid Interpretation Code 6.4 - 8.2 G/dL AO ADM SS Sodium [Moles/Vol] 140 mmol/L Invalid Interpretation Code 136 - 145 mmol/L AO ADM SS Urea nitrogen [Mass/Vol] 9 mg/dL Invalid Interpretation Code 7 - 18 mg/dL AO ADM SS Urea nitrogen/Creatinine [Mass ratio] 11 ratio Invalid Interpretation Code 7 - 27 ratio AO ADM SS LABORATORYOrdered By: Kia Mireles on 01-19-2022 Basophil, Absolute 0.1 103/mcL Invalid Interpretation Code 0.0 - 0.2 10^3/mcL AO Workflow SS Basophils/100 WBC (Bld) 0.6 % Invalid Interpretation Code 0.0 - 2.5 % AO Workflow SS Eosinophil, Absolute 0.1 103/mcL Invalid Interpretation Code 0.0 - 0.4 10^3/mcL AO Workflow SS Eosinophils/100 WBC (Bld) 0.4 % Invalid Interpretation Code 0.0 - 7.0 % AO Workflow SS Erythrocyte distribution width (RBC) [Ratio] 15.0 % Invalid Interpretation Code 11.5 - 14.5 % AO Workflow SS Hematocrit (Bld) [Volume fraction] 38.1 % Invalid Interpretation Code 37.0 - 47.0 % AO Workflow SS Hemoglobin (Bld) [Mass/Vol] 12.7 G/dL Invalid Interpretation Code 12.0 - 16.0 G/dL AO Workflow SS Lymphocyte, Absolute 3.0 103/mcL Invalid Interpretation Code 0.8 - 3.9 10^3/mcL AO Workflow SS Lymphocytes/100 WBC (Bld) 25.1 % Invalid Interpretation Code 10.0 - 50.0 % AO Workflow SS MCH (RBC) [Entitic mass] 29.5 pg Invalid Interpretation Code 27.0 - 31.2 pg AO Workflow SS MCHC 33.3 G/dL Invalid Interpretation Code 33.0 - 37.0 G/dL AO Workflow SS MCV (RBC) [Entitic vol] 88.8 fL Invalid Interpretation Code 80.0 - 94.0 fL AO Workflow SS Monocyte distribution width Auto (Bld) [Entitic vol] 18.68 Invalid Interpretation Code 0.00 - 20.00 AO Workflow SS Comment on above: Result Comment: For ED adult patients suspected of sepsis, MDW<=20.0 does not rule out sepsis or risk of sepsis Monocyte, Absolute 0.7 103/mcL Invalid Interpretation Code 0.2 - 1.0 10^3/mcL AO Workflow SS Monocytes/100 WBC (Bld) 6.0 % Invalid Interpretation Code 1.7 - 13.0 % AO Workflow SS Neutrophil, Absolute 8.0 103/mcL Invalid Interpretation Code 2.9 - 6.2 10^3/mcL AO Workflow SS Neutrophils/100 WBC (Bld) 67.9 % Invalid Interpretation Code 37.0 - 80.0 % AO Workflow SS Platelet mean volume (Bld) [Entitic vol] 8.4 fL Invalid Interpretation Code 7.4 - 10.4 fL AO Workflow SS Platelets (Bld) [#/Vol] 393 103/mcL Invalid Interpretation Code 130 - 400 10^3/mcL AO Workflow SS RBC (Bld) [#/Vol] 4.29 106/mcL Invalid Interpretation Code 4.20 - 5.40 10^6/mcL AO Workflow SS WBC (Bld) [#/Vol] 11.8 103/mcL Invalid Interpretation Code 4.6 - 10.8 10^3/mcL AO Workflow SS LABORATORYOrdered By: Christiano Montelongo on 01-19-2022 Calcium [Mass/Vol] 9.3 mg/dL Invalid Interpretation Code 8.4 - 10.2 mg/dL AO ADM SS Chloride [Moles/Vol] 104 mmol/L Invalid Interpretation Code 98 - 107 mmol/L AO ADM SS CO2 [Moles/Vol] 27 mmol/L Invalid Interpretation Code 22 - 29 mmol/L AO ADM SS Creatinine [Mass/Vol] 0.76 mg/dL Invalid Interpretation Code 0.55 - 1.02 mg/dL AO ADM SS Electrolyte Balance 9.0 mEq/L Invalid Interpretation Code 4.0 - 15.0 mEq/L AO ADM SS Glucose [Mass/Vol] 97 mg/dL Invalid Interpretation Code 70 - 105 mg/dL AO ADM SS Potassium [Moles/Vol] 4.3 mmol/L Invalid Interpretation Code 3.5 - 5.1 mmol/L AO ADM SS Sodium [Moles/Vol] 140 mmol/L Invalid Interpretation Code 136 - 145 mmol/L AO ADM SS Troponin I.cardiac DL <= 0.01 ng/mL [Mass/Vol] 4.2 ng/L Invalid Interpretation Code 0.0 - 51.4 ng/L AO ADM SS Urea nitrogen [Mass/Vol] 14 mg/dL Invalid Interpretation Code 7 - 18 mg/dL AO ADM SS Urea nitrogen/Creatinine [Mass ratio] 18 ratio Invalid Interpretation Code 7 - 27 ratio AO ADM SS LABORATORYOrdered By: SYSTEM SYSTEM on 01-19-2022 GFR 115 ml/min/1.73sqm Invalid Interpretation Code AO Chemistry S GFR Non- 95 ml/min/1.73sqm Invalid Interpretation Code AO Chemistry S Progress Noteon 11-04-2020 Risk Control Consultant Authentication Interface Message Text Patient ID: Ashley Mehta is a 20 y.o. female. Her chief complaint(s) include: Follow Up Assessment 1. Migraine without aura and without status migrainosus, not intractable 2. Acute pain of left knee 3. Diarrhea, unspecified type 4. Weight loss 5. Bloody stool Pelon Ramirez was seen today for follow up. Diagnoses and all orders for this visit: Migraine without aura and without status migrainosus, not intractable Acute pain of left knee - PT Evaluate and Treat; Future - AMB Referral To Orthopedic Surgery; Future Diarrhea, unspecified type - AMB Referral To Gastroenterology; Future Weight loss - AMB Referral To Gastroenterology; Future Bloody stool - AMB Referral To Gastroenterology; Future Patient with multiple issues. Patient's migraine appears to be improving with current medication. Instructed patient to get eye exam due to complaint of blurry vision (worsens when has migraine). Also instructed to increase fluids in diet. Patient with left knee pain. Referral for orthopedics and physical therapy sent. Patient also with diarrhea and having some weight loss and blood in stool. Will refer patient to GI for further evaluation. Return in about 3 months (around 02/04/2021) for follow up headache. Subjective She is unaccompanied. Migraine The onset has been acute. The duration has been 2 months. (To 3 months). The pattern is recurrent. The frequency of the symptoms has been 2 times per week. (To 3x/weeks----used to be daily and last almost all day). The symptoms are described as severe and interferring with normal daily activities (when she gets them, they can be severe. They are getting better since the meds). These symptoms occur on in the occipital area. The pain radiates to the front. Symptoms are aggravated by: bright light, loud noise and movement. Headaches relieved by: sleep and a dark quiet room (pressure on head). The patient's associated symptoms include: decreased visual acuity. The patient has no fever, no dizziness, no sleep disturbance (not out of the ordinary), no vertigo, no vomiting, no diplopia, no ear pain, no gait problems and no personality change. (Blurry vision when gets headache but also has constant mildly blurry vision, when has MERLOS will have dizziness/vertigo). The contributing factors have included family history of migraines. Primary Care Review of Systems Objective Vital Signs 11/04/20 1412 Temp: 36.7 C (98 F) TempSrc: Temporal Weight: (!) 123 kg There is no height or weight on file to calculate BMI. Physical Exam Constitutional: She appears well. She is active. overweight HENT: Ears: Right Ear: Tympanic membrane normal. Left Ear: Tympanic membrane normal. Mouth/Throat: No pharynx erythema. Eyes: EOM are normal. Pupils are equal, round, and reactive to light. Fundoscopic exam appears normal Pulmonary/Chest: Effort normal and breath sounds normal. Abdominal: Soft. Bowel sounds are normal. Neurological: She is alert. Skin: Findings: No rash. Vitals reviewed: Temperature 36.7 C (98 F), temperature source Temporal, weight (!) 123 kg. Normal [facility] C. difficile by Amplificatio non 10-06-2020 C. difficile by Amplification Is this order Clinic Collect?->Yes Is this specimen being sent to an external lab?->No Release to patient->Automatic [id number]&Stool^^^Bowel - Rectum&Bowel - Rectum C. difficile by Amplification: NEGATIVE for toxin-producing C. difficile Source: STOOL Collected: 10/06/20 15:20 Site: Bowel - Rectum Received : 10/06/20 19:43 C. difficile by Amplification FINAL 10/07/20 09:58 NEGATIVE for toxin-producing C. difficile - DNA Amplification assay for the detection of cytotoxigenic C. difficile in stool specimens. - This molecular assay has a reported sensitivity and specificity of 95%. - Reference Range: A healthy person is usually negative for C. difficile toxin. However, in some patients, particularly children under 2 years of age, C. difficile can be present as asymptomatic colonization. Normal [facility] Comment on above: Performed By: #### C DIFA ####[address] [phone] Enteric Cultureon 10-06-2020 Enteric Culture Is this order Clinic Collect?->Yes Is this specimen being sent to an external lab?->No Release to patient->Automatic [id number]&Stool^^^Bowel - Rectum&Bowel - Rectum Enteric Culture: No Salmonella or Shigella isolated. Source: STOOL Collected: 10/06/20 15:20 Site: Bowel - Rectum Received : 10/06/20 19:43 Shiga Toxin, stool FINAL 10/07/20 13:24 NEGATIVE Test for SHIGA TOXINS 1 and 2 - Immunochromatographic assay - Shiga toxin 1 and 2 are produced by enterohemorrhagic E. coli infections. A negative test is evidence for the absence of E. coli 0157:H7 or other toxin producing E. coli. - The presence or absence of Shigella spp. is reported with the enteric pathogen culture result. - Normal Result: Negative Campylobacter Culture FINAL 10/09/20 10:57 Culture negative for Campylobacter Enteric Culture FINAL 10/08/20 13:00 No Salmonella or Shigella isolated. - Culture was examined for pathogens Salmonella, Shigella, Campylobacter and Shiga-toxin positive E.coli. Normal [facility] Comment on above: Performed By: #### S TOOL ####[address] [phone] Giardia and Cryptosporidia S creenon 10-06-2020 Giardia and Cryptosporidia Screen Is this order Clinic Collect?->Yes Is this specimen being sent to an external lab?->No Release to patient->Automatic [id number]&Stool^^^Bowel - Rectum&Bowel - Rectum Giardia and Cryptosporidia Screen: Giardia lamblia Ag: NEGATIVE Source: STOOL Collected: 10/06/20 15:20 Site: Bowel - Rectum Received : 10/06/20 19:43 Giardia and Cryptosporidia Screen FINAL 10/07/20 13:04 Giardia lamblia Ag: NEGATIVE Enzyme Immunoassay - Normal Result: Negative - Cryptosporidium Ag: NEGATIVE Enzyme Immunoassay - Normal Result: Negative Normal [facility] Comment on above: Performed By: #### O PSCR ####[address] [phone] H. pylori Ag EIAon H. pylori Ag EIA Is this order Clinic Collect?->Yes Is this specimen being sent to an external lab?->No Release to patient->Automatic [id number]&Stool^^^Bowel - Rectum&Bowel - Rectum H. pylori Ag EIA: H. pylori Ag: NEGATIVE Source: STOOL Collected: 10/06/20 15:20 Site: Bowel - Rectum Received : 10/06/20 19:43 H. pylori Ag EIA FINAL 10/07/20 13:04 H. pylori Ag: NEGATIVE Immunochromatographic Assay - Normal Result: Negative Normal [facility] Comment on above: Performed By: #### H PYAG ####[address] [phone] Progress Noteon 10-06-2020 Risk Control Consultant Authentication Interface Message Text Patient ID: Ashley Mehta is a 19 y.o. female. Her chief complaint(s) include: Follow Up (headaches, has had 3-4 since last time she was here) Assessment 1. Abdominal pain, epigastric 2. Acute intractable headache, unspecified headache type 3. Vitamin D deficiency 4. Diarrhea, unspecified type 5. Acute pain of left knee Plan Ashley was seen today for follow up. Diagnoses and all orders for this visit: Abdominal pain, epigastric - Stool H. pylori (Lab Collect); Future - Stool H. pylori (Lab Collect) Acute intractable headache, unspecified headache type Vitamin D deficiency - Cholecalciferol (VITAMIN D3) 50 MCG (2000 UT) CAPS; Take 1 Capsule by mouth daily Diarrhea, unspecified type - Stool Enteric culture (Lab Collect); Future - Stool Giardia and Cryptosporidium Screen; Future - Stool H. pylori (Lab Collect); Future - Stool C. Difficile (Lab Collect); Future - Stool C. Difficile (Lab Collect) - Stool H. pylori (Lab Collect) - Stool Giardia and Cryptosporidium Screen - Stool Enteric culture (Lab Collect) Acute pain of left knee - AMB Referral To Orthopedic Surgery; Future Overall, patient's headache and stomachaches seem to be improving. Will continue current medication for now. Will obtain stool studies due to persistent diarrhea. Will recheck in 1 month and obtain repeat ESR at that time. Follow up sooner if worsening or not improving. Due to continued left knee pain, will refer patient to orthopedics for further evaluation. Return in about 1 month (around 11/05/2020). Subjective HPI Comments: Patient is a 19 year old female here for follow up on abdominal pain and headaches and left knee pain. Regarding the abdominal pain, the prilosec seems to be helping with the discomfort. Patient is keeping a record of foods that make symptoms worse and trying to avoid or at least cut back on them. Still having diarrhea. The diarrhea tends to occur right after eating. No blood in the stools. No weight loss. No history of recent antibiotics. Regarding the headaches, the headaches and blurry vision are still occurring but less frequently and less intense. No balance issues. Patient taking the medication as prescribed. Had discussed obtaining an MRI of head but patient declined it at the time. No vomiting. Regarding the left knee pain, pain continues to be present. Will have pain if someone palpates or touches it. If patient touches it, will get a tingling sensation. Limping off/on. Wearing knee brace off/on. No physical therapy or seen by orthopedic doctor for this issue. Knee pain has been present for 3 to 4 months at least and not getting better. Some swelling. Patient taking ibuprofen and icing it. She is unaccompanied. Primary Care Review of Systems Objective Vital Signs 10/06/20 1039 Temp: 36.7 C (98.1 F) TempSrc: Temporal Weight: (!) 129.3 kg There is no height or weight on file to calculate BMI. Physical Exam Constitutional: She appears well. She is active. No distress. HENT: Head: Atraumatic. Ears: Right Ear: Tympanic membrane and external ear normal. Left Ear: Tympanic membrane and external ear normal. Nose: Nose normal. Mouth/Throat: Mucous membranes are moist. Dentition is normal. No pharynx erythema. Eyes: Conjunctivae and EOM are normal. Pupils are equal, round, and reactive to light. Fundoscopic exam appears normal Neck: Neck supple. Cardiovascular: Normal rate, regular rhythm, S1 normal and S2 normal. Pulses are palpable. Pulmonary/Chest: Effort normal and breath sounds normal. Abdominal: Soft. Bowel sounds are normal. She exhibits no distension and no mass. There is abdominal tenderness (minimal discomfort with palpation). There is no rebound and no guarding. Musculoskeletal: Cervical back: Neck supple. General: No deformity. Comments: Left knee pain with mild yellow discoloration. No erythema noted. Pain with palpation. Neurological: She is alert. She has normal strength and normal reflexes. She exhibits normal muscle tone. Coordination and gait normal. Skin: Skin is warm. Skin is not pale and cyanotic. Findings: No rash. Vitals reviewed: Temperature 36.7 C (98.1 F), temperature source Temporal, weight (!) 129.3 kg, last menstrual period 09/14/2020. Normal [facility] TSH with reflex T4FRon 09-23 TSH with reflex T4FR 1.997 uIU/mL Normal 0.350-5.500 [facility] Comment on above: Order Comment: With differential.Release to patient- >AutomaticIs this specimen being sent to an external lab?->[id number]&Blood^\S\^Vein&Vein Performed By: #### T SHR ####[address] [phone] Vitamin D 25 OHon 09-23-2020 25 OH Vitamin D 21 ng/mL Low 30-100 [facility] Comment on above: Order Comment: With differential.Release to patient- >AutomaticIs this specimen being sent to an external lab?->[id number]&Blood^\S\^Vein&Vein Result Comment: Refe rence ranges provided by [facility] are based on Endocrine Society Guidelines: Level Characterization <21 ng/mL Vitamin D deficiency 21-29 ng/mL Suboptimal Vitamin D status 30-100 ng/mL Optimal Vitamin D status >100 ng/mL Potentially toxic Vitamin D effects NOTE: New Reference Ranges effective 18 Performed By: #### V 25DH ####[address] [phone] C-Reactive Proteinon 021 C-Reactive Protein 0.6 mg/dL Normal 0.0-1.0 [facility] Comment on above: Order Comment: With differential. Release to patient->Automatic Is this specimen being sent to an external lab?->No [id number]&Blood^\S\^Vein&Vein Result Comment: CRP determinations in neonates should be interpreted with caution. CRP may be elevated in circumstances not associated with inflammation (e.g. difficult delivery, pneumothorax). In premature neonates CRP levels may not rise to abnormal levels even if sepsis is present; some speculate that immature liver function decreases the ability to generate a CRP response. Performed By: #### C RP #### [address] [id number] Comp Metabolic Panelon 09-22 Albumin [Mass/Vol] 4.4 g/dL Normal 3.5-5.0 [facility] Comment on above: Order Comment: With differential. Release to patient->Automatic Is this specimen being sent to an external lab?->[place] [id number]&Blood^\S\^Vein&Vein Performed By: #### C MP #### [address] [address] ALP [Catalytic activity/Vol] 80 U/L Normal 35-104 [facility] Comment on above: Order Comment: With differential. Release to patient->Automatic Is this specimen being sent to an external lab?->No [id number]&Blood^\S\^Vein&Vein Performed By: #### C MP #### [address] [address] ALT [Catalytic activity/Vol] 36 U/L High 0-31 [facility] Comment on above: Order Comment: With differential. Release to patient->Automatic Is this specimen being sent to an external lab?->[place] [id number]&Blood^\S\^Vein&Vein Performed By: #### C MP #### [address] [address] AST [Catalytic activity/Vol] 25 U/L Normal 0-31 [facility] Comment on above: Order Comment: With differential. Release to patient->Automatic Is this specimen being sent to an external lab?->No [id number]&Blood^\S\^Vein&Vein Performed By: #### C MP #### [place] [address] Bili,Total 0.7 mg/dl Normal 0.0-1.0 [facility] Comment on above: Order Comment: With differential. Release to patient->Automatic Is this specimen being sent to an external lab?->No [id number]&Blood^\S\^Vein&Vein Performed By: #### C MP #### [place] [address] Calcium [Mass/Vol] 9.1 mg/dL Normal 7.6-11.0 [facility] Comment on above: Order Comment: With differential. Release to patient->Automatic Is this specimen being sent to an external lab?->No [id number]&Blood^\S\^Vein&Vein Performed By: #### C MP #### [address] [address] Chloride [Moles/Vol] 101 mmol/L Normal 96-108 [facility] Comment on above: Order Comment: With differential. Release to patient->Automatic Is this specimen being sent to an external lab?->[place] [id number]&Blood^\S\^Vein&Vein Performed By: #### C MP #### [place] [address] CO2 [Moles/Vol] 23.0 mmol/L Normal 22.0-29.0 [facility] Comment on above: Order Comment: With differential. Release to patient->Automatic Is this specimen being sent to an external lab?->[place] 12970&Blood^\S\^Vein&Vein Performed By: #### C MP #### [place] [address] Creatinine [Mass/Vol] 0.72 mg/dL Normal 0.50-1.00 [facility] Comment on above: Order Comment: With differential. Release to patient->Automatic Is this specimen being sent to an external lab?->[place] [id number]&Blood^\S\^Vein&Vein Result Comment: Premature 0.3-1.0 mg/dL Performed By: #### C MP #### [place] [address] Glucose [Mass/Vol] 86 mg/dL Normal 70-99 [facility] Comment on above: Order Comment: With differential. Release to patient->Automatic Is this specimen being sent to an external lab?->No [id number]&Blood^\S\^Vein&Vein Result Comment: Criteria for Diagnosis of Diabetes(Effective 09/19/10): Fasting specimen (no caloric intake for at least 8 hours). <100 mg/dl Normal 100-125 mg/dl Increased Risk for Diabetes >125 mg/dl Diagnostic for Diabetes Random Glucose (any time of day without regard to last meal). >=200 mg/dl plus Classic Symptoms of Diabetes Performed By: #### C MP #### [place] [address] Potassium [Moles/Vol] 4.3 mmol/L Normal 3.3-5.1 [facility] Comment on above: Order Comment: With differential. Release to patient->Automatic Is this specimen being sent to an external lab?->No [id number]&Blood^\S\^Vein&Vein Performed By: #### C MP #### [place] [address] Protein [Mass/Vol] 8.0 g/dL Normal 5.9-8.4 [facility] Comment on above: Order Comment: With differential. Release to patient->Automatic Is this specimen being sent to an external lab?->No [id number]&Blood^\S\^Vein&Vein Performed By: #### C MP #### [place] [address] Sodium [Moles/Vol] 136 mmol/L Normal 133-145 [facility] Comment on above: Order Comment: With differential. Release to patient->Automatic Is this specimen being sent to an external lab?->No [id number]&Blood^\S\^Vein&Vein Performed By: #### C MP #### [place] [address] Urea nitrogen [Mass/Vol] 14 mg/dL Normal 4-19 [facility] Comment on above: Order Comment: With differential. Release to patient->Automatic Is this specimen being sent to an external lab?->[place] [id number]&Blood^\S\^Vein&Vein Performed By: #### C MP #### [place] [address] Complete Blood Counton 09-22 Differential Complete Automated Normal [facility] Comment on above: Order Comment: With differential. Release to patient->Automatic Is this specimen being sent to an external lab?->No [id number]&Blood^\S\^Vein&Vein Performed By: #### C BC #### [place] [address] Basophils/100 WBC (Bld) 1.00 % Normal 0.00-1.00 [facility] Comment on above: Order Comment: With differential. Release to patient->Automatic Is this specimen being sent to an external lab?->No 48826&Blood^\S\^Vein&Vein Performed By: #### C BC #### [address] [address] Eosinophils/100 WBC (Bld) 0.60 % Normal 0.00-3.00 [facility] Comment on above: Order Comment: With differential. Release to patient->Automatic Is this specimen being sent to an external lab?->[place] [id number]&Blood^\S\^Vein&Vein Performed By: #### C BC #### [place] [address] Erythrocyte distribution width (RBC) [Ratio] 13.8 % Normal 0.0-14.4 [facility] Comment on above: Order Comment: With differential. Release to patient->Automatic Is this specimen being sent to an external lab?->No [id number]&Blood^\S\^Vein&Vein Performed By: #### C BC #### [place] [address] Hematocrit (Bld) [Volume fraction] 40.5 % Normal 36.0-44.0 [facility] Comment on above: Order Comment: With differential. Release to patient->Automatic Is this specimen being sent to an external lab?->No [id number]&Blood^\S\^Vein&Vein Performed By: #### C BC #### [place] [address] Hemoglobin (Bld) [Mass/Vol] 13.1 g/dL Normal 12.0-15.0 [facility] Comment on above: Order Comment: With differential. Release to patient->Automatic Is this specimen being sent to an external lab?->[place] [id number]&Blood^\S\^Vein&Vein Performed By: #### C BC #### [address] [address] Immature granulocytes/100 WBC (Bld) 0.20 % Normal [facility] Comment on above: Order Comment: With differential. Release to patient->Automatic Is this specimen being sent to an external lab?->[place] [id number]&Blood^\S\^Vein&Vein Result Comment: Jenny ture Granulocyte Percent includes promyelocytes, myelocytes, and metamyelocytes. IG% > 1.0 indicates a left shift is present. With automated differentials, bands are included in the neutrophil count and not in the Immature Granulocyte Percent. Performed By: #### C BC #### [place] [address] Lymphocytes/100 WBC (Bld) 22.8 % Low 24.0-44.0 [facility] Comment on above: Order Comment: With differential. Release to patient->Automatic Is this specimen being sent to an external lab?->[place] [id number]&Blood^\S\^Vein&Vein Performed By: #### C BC #### [place] [address] MCH (RBC) [Entitic mass] 30.4 pg Normal 26.0-34.0 [facility] Comment on above: Order Comment: With differential. Release to patient->Automatic Is this specimen being sent to an external lab?->[place] 21022&Blood^\S\^Vein&Vein Performed By: #### C BC #### [place] [address] MCHC 32.3 % Normal 31.0-37.0 [facility] Comment on above: Order Comment: With differential. Release to patient->Automatic Is this specimen being sent to an external lab?->[place] [id number]&Blood^\S\^Vein&Vein Performed By: #### C BC #### [address] [address] MCV (RBC) [Entitic vol] 94.0 fL Normal 80.0-100.0 [facility] Comment on above: Order Comment: With differential. Release to patient->Automatic Is this specimen being sent to an external lab?->[place] 78039&Blood^\S\^Vein&Vein Performed By: #### C BC #### [address] [address] Monocytes/100 WBC (Bld) 6.20 % High 3.00-6.00 [facility] Comment on above: Order Comment: With differential. Release to patient->Automatic Is this specimen being sent to an external lab?->[place] 15834&Blood^\S\^Vein&Vein Performed By: #### C BC #### [address] [address] Neutrophils (Bld) [#/Vol] 5.6 10*3/uL Normal 2.0-7.2 [facility] Comment on above: Order Comment: With differential. Release to patient->Automatic Is this specimen being sent to an external lab?->No [id number]&Blood^\S\^Vein&Vein Performed By: #### C BC #### [address] [address] Neutrophils/100 WBC (Bld) 69.2 % High 35.0-66.0 [facility] Comment on above: Order Comment: With differential. Release to patient->Automatic Is this specimen being sent to an external lab?->[place] [address]38&Blood^\S\^Vein&Vein Performed By: #### C BC #### [address] [address] Nucleated RBC/100 WBC (Bld) [Ratio] 0.0 % Normal -1.0-0.0 [facility] Comment on above: Order Comment: With differential. Release to patient->Automatic Is this specimen being sent to an external lab?->No [id number]&Blood^\S\^Vein&Vein Performed By: #### C BC #### [address] [address] Platelet mean volume (Bld) [Entitic vol] 10.9 fL Normal [facility] Comment on above: Order Comment: With differential. Release to patient->Automatic Is this specimen being sent [place] an external lab?->[place] [id number]&Blood^\S\^Vein&Vein Result Comment: MPV is platelet range and age dependent Performed By: #### C BC #### [place] [address] Platelets (Bld) [#/Vol] 442 10*3/uL Normal 150-450 [facility] Comment on above: Order Comment: With differential. Release to patient->Automatic Is this specimen being sent to an external lab?->No [id number]&Blood^\S\^Vein&Vein Performed By: #### C BC #### [place] [address] RBC 4.31 10E12/L Normal 4.00-4.90 [facility] Comment on above: Order Comment: With differential. Release to patient->Automatic Is this specimen being sent to an external lab?->No [id number]&Blood^\S\^Vein&Vein Performed By: #### C BC #### [place] [address] WBC (Bld) [#/Vol] 8.1 10*3/uL Normal 4.5-11.0 [facility] Comment on above: Order Comment: With differential. Release to patient->Automatic Is this specimen being sent to an external lab?->No [id number]&Blood^\S\^Vein&Vein Performed By: #### C BC #### [place] [address] ESRon 09-22-2020 ESR Sed Rate 40 mm Normal [facility] Comment on above: Order Comment: With differential. Release to patient->Automatic Is this specimen being [place]?->[place] [id number]&Blood^\S\^Vein&Vein Performed By: #### S RATE #### [place] [address] Interpretation ----- Normal [facility] Comment on above: Order Comment: With differential. Release to patient->Automatic Is this specimen being sent to an external lab?->No [id number]&Blood^\S\^Vein&Vein Result Comment: Male Female Child 0-13 Child 0-13 Adult 0- 9 Adult 0-20 Performed By: #### S RATE #### [facility] Kofi [address] [place] [id number] Progress Noteon 09-22-2020 Risk Control Consultant Authentication Interface Message Text Patient ID: Ashley Mehta is a 19 y.o. female. Her chief complaint(s) include: Migraine (Started approximately 3 months ago.) and Nausea (Unable to eat much, (too much pain) started approximately 3 months ago as well.) Assessment 1. Abdominal pain, generalized 2. Diarrhea, unspecified type 3. Fatigue, unspecified type 4. Migraine without aura and without status migrainosus, not intractable 5. Gastroesophageal reflux disease, unspecified whether esophagitis present Plan Ashley was seen today for migraine and nausea. Diagnoses and all orders for this visit: Abdominal pain, generalized - Comprehensive metabolic panel (Clinic Collect) Diarrhea, unspecified type - Comprehensive metabolic panel (Clinic Collect) Fatigue, unspecified type - POCT Blood Glucose - Complete Blood Count with Diff (Clinic Collect) - C-reactive protein (Clinic Collect) - ESR (Clinic Collect) - TSH with Reflex to T4, Free (Clinic Collect) - Venipuncture - Vitamin D 25 hydroxy (Clinic Collect) Migraine without aura and without status migrainosus, not intractable - TSH with Reflex to T4, Free (Clinic Collect) - Vision Screening - vitamin B-2 (RIBOFLAVIN) 100 MG tablet; Take 2 Tablets (200 mg) by mouth daily - Magnesium Oxide (MAG OX) 400 (241.3 Mg) MG TABS tablet; Take 1 Tablet (400 mg) by mouth daily Gastroesophageal reflux disease, unspecified whether esophagitis present - omeprazole (PRILOSEC) 40 MG capsule; Take 1 Capsule (40 mg) by mouth daily Patient with multiple issues including abdominal pain and headaches. Will obtain some laboratory studies to further evaluate the complaints. Will have patient increase the prilosec to 40mg qday. Avoid fatty, greasy foods. Keep food diary so better able to assess what is causing the discomfort. Regarding the headaches, patient having some vision changes. Will have patient follow up with eye doctor for vision check. Will have patient start on b2 and magnesium oxide to see if that helps. 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 Will need to monitor closely---may need CT or MRI of head to make sure no abnormalities---espec ially with vision concerns. Return in about 2 weeks (around 10/06/2020) for recheck headache. Subjective She is unaccompanied. Migraine The onset has been acute. The duration has been 3 months. The pattern is recurrent. The course is worsening. The frequency of the symptoms has been 1 time per day. The duration of each episode has been 1-4 hours. Time of day headaches occur: in the morning. The quality of pain is pounding. The symptoms are described as moderate (to severe). The highest pain severity has been 7/10 (to 10/10). These symptoms occur on in the occipital area (and goes around whole head). Radiation: all around. The patient's headache is triggered by: bright light, missing a meal, lack of sleep and stress. Symptoms are aggravated by: bright light. Headaches relieved by: ibuprofen, sleep and a dark quiet room. The patient's associated symptoms include: dizziness (some), decreased visual acuity, sleep disturbance (has sleep issues), nausea, abdominal pain (may be due to ARIC) and depression. The patient has no fever, no congestion, no cough, no sore throat, no vertigo, no vomiting, no ear pain, no rhinorrhea, no incontinence, no gait problems and no personality change. (Blurry vision---left eye worse than left, some diarrhea). The patient does not experience aura. The contributing factors have included depression, family history of migraines and stress. The contributing factors have not included recent head trauma. There have been no previous evaluations. Review of Systems Gastrointestinal: Positive for nausea. Objective Vital Signs 09/22/20 1414 09/22/20 1511 BP: 123/81 118/76 Pulse: 83 80 Temp: 36.9 C (98.5 F) TempSrc: Temporal Weight: (!) 127.7 kg There is no height or weight on file to calculate BMI. Physical Exam Constitutional: She appears well. She is active. No distress. HENT: Head: Atraumatic. Ears: Right Ear: Tympanic membrane and external ear normal. Left Ear: Tympanic membrane and external ear normal. Nose: Nose normal. Mouth/Throat: Mucous membranes are moist. Dentition is normal. Eyes: Conjunctivae and EOM are normal. Pupils are equal, round, and reactive to light. Fundoscopic exam appeared normal Neck: Neck supple. Cardiovascular: Normal rate, regular rhythm, S1 normal and S2 normal. Pulses are palpable. Pulmonary/Chest: Effort normal and breath sounds normal. Abdominal: Soft. Bowel sounds are normal. She exhibits no distension and no mass. There is no abdominal tenderness. Musculoskeletal: Cervical back: Neck supple. General: No deformity. Neurological: She is alert. She has normal strength. She exhibits normal muscle tone. Skin: Skin is warm. Skin is not pale and cyanotic. Findings: No rash. Vitals reviewed: Blood pressure 123/81, pulse 83, tempe (more content not included)... Normal [facility] Hemoglobin A1con 07-20-2020 HbA1c (Bld) [Mass fraction] 5.5 % Normal 0.0-5.6 [facility] Comment on above: Order Comment: Relea se to patient->Automatic Is this specimen being sent to an [place] lab?->[place] [id number]&Blood^\S\^Vein&Vein Performed By: #### H BA1C #### [place] [address] TSH with reflex T4FRon 07-20 TSH with reflex T4FR 1.270 uIU/mL Normal 0.350-5.500 [facility] Comment on above: Order Comment: Relea se to patient->Automatic Is this specimen being sent to an external lab?->No [id number]&Blood^\S\^Vein&Vein Performed By: #### T SHR #### [address] [address] Hemoglobin A1con 07-19-2020 HgbA1c Interpretation ----- Normal [facility] Comment on above: Order Comment: Relea se to patient->Automatic Is this specimen being sent to an external lab?->No [id number]&Blood^\S\^Vein&Vein Result Comment: Reference Interval <5.7% 5.7%-6.4% prediabetes >/= 6.5% diabetes Targets for diabetes management: Type I <7.5% Type II <7.0% Change in reference range effective 2018 Performed By: #### H BA1C #### [place] [address] Lipid Panelon 07-19-2020 Cholesterol [Mass/Vol] 188 mg/dL Normal 0-189 [facility] Comment on above: Order Comment: Relea se to patient->Automatic Is this specimen being sent to an external lab?->No [id number]&Blood^\S\^Vein&Vein Result Comment: Acceptable <190 mg/dL Borderline 190-224 mg/dL Abnormal >224 mg/dL NOTE: Reference Range change effective 03/19/18 Performed By: #### L IPID #### [place] [address] Cholesterol in HDL [Mass/Vol] 50 mg/dL Normal [facility] Comment on above: Order Comment: Relea se to patient->Automatic Is this specimen being sent to an external lab?->No [id number]&Blood^\S\^Vein&Vein Result Comment: Acceptable >45 mg/dL Borderline 40-44 mg/dL Abnormal <40 mg/dL NOTE: Reference Range change effective 03/19/18 Performed By: #### L IPID #### [place] [address] Cholesterol in LDL [Mass/Vol] 115 mg/dL Normal 0-119 [facility] Comment on above: Order Comment: Relea se to patient->Automatic Is this specimen being sent to an external lab?->No [id number]&Blood^\S\^Vein&Vein Result Comment: Acceptable <120 mg/dL Borderline 120-159 mg/dL Abnormal >159 mg/dl NOTE: Reference Range change effective 03/19/18 Performed By: #### L IPID #### [place] [address] Non-HDL Cholesterol 138 mg/dl Normal 0-149 [facility] Comment on above: Order Comment: Relea se to patient->Automatic Is this specimen being sent to an external lab?->No [id number]&Blood^\S\^Vein&Vein Result Comment: Acceptable <150 mg/dL Borderline 150-189 mg/dL Abnormal >189 mg/dl Performed By: #### L IPID #### [address] [address] Triglyceride [Mass/Vol] 113 mg/dL Normal 0-114 [facility] Comment on above: Order Comment: Relea se to patient->Automatic Is this specimen being sent to an external lab?->No [id number]&Blood^\S\^Vein&Vein Result Comment: Acceptable <115 mg/dl Borderline 115-149 mg/dl Abnormal >149 mg/dl NOTE: Reference Range change effective 03/19/18 Result invalid if not a fasting specimen. Performed By: #### L IPID #### [address] [address] Progress Noteon 07-19-2020 Risk Control Consultant Authentication Interface Message Text Patient ID: Ashley Mehta is a 19 y.o. female. Her chief complaint(s) include: 19 YEAR WELL CHILD Assessment 1. Routine general medical examination at a health care facility 2. Depressive disorder 3. Screening for lipoid disorders 4. Screening for endocrine, metabolic and immunity disorder Plan Ashley was seen today for 19 year well child. Diagnoses and all orders for this visit: Routine general medical examination at a health care facility - Cancel: Hearing Screening - Cancel: Vision Screening - PHQ9 Assessment With Score - Health Risk Assessment - CRAFFT Depressive disorder Screening for lipoid disorders - Lipid panel (Clinic Collect) - Venipuncture Screening for endocrine, metabolic and immunity disorder - POCT Blood Glucose - TSH with Reflex to T4, Free (Clinic Collect) - Hemoglobin A1c (Clinic Collect) Discussed patient following up with counselor for depressive disorder. Patient denies any current suicidal ideations. In my clinical judgement, patient is safe to go home. Asthma under good control. Continue albuterol as needed. Asthma action plan updated. Discussed diet and exercise. Discussed patient transitioning to adult physician over the next year or so. Return in about 1 year (around 07/19/2021) for well check. Subjective She is accompanied by her mother. Independent history obtained from mother. 19 YEAR WELL CHILD Home: Ashley eats meals with family, has an adult to turn to for help and is permitted and able to make independent decisions. Ashley has no home risk identified and does not pay the bills. Education: Ashley is a highschool graduate. Eating: Ashley eats regular meals including fruits and vegetables (need help regarding eating more fruits and veggies), drinks non-sweetened liquids (does need to decrease the pop intake) and has a calcium source (milk). Ashley does not eat breakfast and does not limit fast food. Activities & Sports: Ashley performs less than 1 hour of physical activity daily and engages in screen time more than 2 hours daily. Drugs: Ashley does not use tobacco, does not use drugs, does not use alcohol and does not vape. Safety: Ashley has a violence free home, uses helmet and uses seat belt. Sex: The patient has never had a sexual partner. The patient is interested in males. The patient has never had sex. The patient's sexual orientation is heterosexual. The patient's gender identity is cisgender. Suicidality: sAhley has ways to cope with stress, has problems with sleep, has depression and has mood swings (with menses). Ashley does not display self-confidence (some days better than other), has no anxiety, has no suicidal ideation and has no homicidal ideation. Menstruation (Menarche: age 10) Menstruation: regular periods, mood changes and moderate cramping Output Urine and Stool Pattern: Urine and Stool Pattern: Normal stool pattern, no constipation, normal urine pattern, no nocturnal enuresis. Stool Consistency: soft Sleep Sleeping Difficulty: no difficulty sleeping Hours of sleep at a time: 5 (or more. Tosses and turns with sleeping) Teen Anticipatory Guidance The following anticipatory guidance was reviewed during the visit: Nutrition: limit junk food/fast food and soft drinks. Safety: home safety and use safety helmet/gear with activities. Social: avoid or limit screen time and parental limits and consequences for unacceptable behavior. Health: age appropriate dental care, age appropriate sleep habits, elevated noise and hearing, avoid situations where drugs and alcohol are present, how to resist peer pressure to smoke, drink, use drugs, contraception/practic e safe sex/ use condoms, practice abstinence- the safest way to prevent and STDs, discuss athletic conditioning/ weight training/weight supplements, learn to manage time and activities and be responsible for attendance/ homework/ course selection. Screenings Previous Vaccine Reactions: No. Life events information was reviewed-no referral needed (social determinant questionnaire completed; no concerns at this time) Tuberculosis Concerns: Negative Tuberculosis Screen Concerns: no exposure to Tb or person with positive ppd Hearing Vision Concerns: The caregiver has no concerns about the patient's hearing. The caregiver has no concerns about the patient's vision. Hyperlipidemia Concerns: Positive Hyperlipidemia Screen Concerns: parent with cholesterol >240mg/dl (mother) Negative Hyperlipidemia Screen Concerns: no parent or grandparent with DE angina peripheral or cerebrovascular disease <55 years Primary Care Review of Systems Objective Vital Signs 07/19/20 1315 BP: 128/76 Pulse: 88 Temp: 36.3 C (97.4 F) TempSrc: Temporal Weight: (!) 128.8 kg Height: 174 cm Body mass index is 42.55 kg/m . Physical Exam Constitutional: She appears well. She is active. No distress. overweight HENT: (more content not included)... Normal [facility] Progress Noteon 06-24-2020 Risk Control Consultant Authentication Interface Message Text Patient ID: Ashley Mehta is a 19 y.o. female. Her chief complaint(s) include: Knee Injury (fell a week ago. ) and Medication Refill (albuterol, omeprazole, and naproxen) Assessment 1. Acute pain of left knee 2. Asthma, intermittent, uncomplicated 3. Dysmenorrhea 4. Gastroesophageal reflux disease, unspecified whether esophagitis present Plan Ashley was seen today for knee injury and medication refill. Diagnoses and all orders for this visit: Acute pain of left knee - X-Ray Knee 3 Views Left; Future Asthma, intermittent, uncomplicated - albuterol 108 (90 Base) MCG/ACT inhaler; Inhale 2 Puffs into the lungs every 4 hours as needed for Wheezing, Shortness of Breath or Cough Use with spacer. - Spacer/Aero-Holding Chambers (GA KUMAR) MISC DEVICE; Use with inhaled medication as instructed. Dysmenorrhea - naproxen (NAPROSYN) 250 MG tablet; Take 2 tabs (500mg) po at onset of menstrual pain followed by 1 tab q8 hours as needed for continued pain. Gastroesophageal reflux disease, unspecified whether esophagitis present - omeprazole (PRILOSEC) 20 MG capsule; Take 1 Capsule (20 mg) by mouth daily Other orders - Cancel: Meningococcal B (BEXSERO) - Cancel: Tdap vaccine >= 7y - Cancel: Influenza Vaccine 0.5 mL >= 6 mo Quadrivalent (PF) Return for Well Visit and as needed. Will obtain a knee Xray ; will determine follow up after results available. Discussed RICE therapy. Discussed possible ortho referral. Vaccines canceled because they decided to go to the to have these completed. Refill provided for inhaler and spacer; please schedule your asthma follow up. Discussed proper use of the inhaler with the spacer. If not effective within 10-15 minutes please seek emergency care. Prilosec refill provided; please follow up with Dr. Carrington as she recommends. Refill for naprosyn provided. Ashley reports that she uses this for menstrual cramps and it works well. Subjective HPI Comments: Here today due to she fell in the kitchen about a week ago and hurt her knee. Swelling is improving. States her knee feels frozen when you touch it 'numb'; feels like something near her knee is moving. Knee cap felt loose a few days ago when swimming. Bending and standing makes the knee feel worse; elevating and bending slightly makes it feel better. No previous evaluation. She is accompanied by her mother. Knee Injury This problem is new. The duration has been 1 week. The onset has been acute. Course: some improvement; some symptoms the same. The symptoms are aggravated by sitting and standing. Medication Refill Primary Care Review of Systems Objective Vital Signs 06/24/20 1509 Temp: 36.4 C (97.6 F) TempSrc: Temporal Weight: (!) 129.2 kg There is no height or weight on file to calculate BMI. Physical Exam Constitutional: She appears well. She is active. No distress. HENT: Head: Atraumatic. Eyes: Conjunctivae are normal. Cardiovascular: Normal rate, regular rhythm, S1 normal and S2 normal. Heart murmur not heard. Pulmonary/Chest: Effort normal and breath sounds normal. There is normal air entry. Air movement is not decreased. Musculoskeletal: Comments: Left knee: full ROM although reports discomfort . Healing ecchymosis noted surrounding the area above, laterally and below the patella. Patella is midline. Edema noted above and below the knee 2+; temperature and color are even. Neurological: She is alert. Skin: Skin is warm. Findings: No rash. Vitals reviewed: Temperature 36.4 C (97.6 F), temperature source Temporal, weight (!) 129.2 kg, last menstrual period 06/10/2020. Normal [facility] Vital Signs Date Time Vital Sign Value Performing Clinician Faci lity 01-19-2022 17:49-0400 Body temperature 97.88 [degF] DR YAMILET MODI MD [facility] 01-19-2022 17:49-0400 Body weight 137.[address] YAMILET MODI MD [facility] 01-19-2022 17:49-0400 Diastolic blood pressure 95 mm[Hg] DR YAMILET MODI MD [facility] 01-19-2022 17:49-0400 Heart rate 102 /min DR YAMILET MODI MD [facility] 01-19-2022 17:49-0400 Respiratory rate 16 /min DR YAMILET MODI MD [facility] 01-19-2022 17:49-0400 Systolic blood pressure 132 mm[Hg] DR YAMILET MODI MD [facility] Encounters Encounter Date Encounter Type Care Provider Facility Start: 12-12-2024 End: 12-12-2024 Emergency department patient visit KEMAR ENGLISH MD [facility] Start: 11-14-2024 End: 11-14-2024 Patient encounter procedure Morro Christopher [facility] Work Phone: Start: 11-14-2024 End: 11-14-[address] Rama Carrington MD Work Phone: [facility] Start: 07-22-2024 End: 07-22-2024 ambulatory TALISHA Heather [employer]ARR[employer]IN [employer] EDIT[employer] Facility:[facility] Start: 05-12-[address] MARCELLA KANG MD F acility:[facility] Start: 04-25-2024 End: 04-25-2024 ambulatory TALISHA Heather [employer]LINE EDITOR Facility:[facility] Start: 04-25-2024 End: 04-25-[address] MARCELLA KANG MD [facility] Start: 04-03-2024 End: 04-03-2024 ambulatory TALISHA Heather [employer]ONLINE EDITOR Facility:[facility] Start: 04-03-2024 End: 04-03-2024 Patient encounter procedure TALISHA Romero [employer]ONLINE EDITOR [facility] Start: 02-18-2024 End: 04-02-2024 ambulatory NONE PHYSICIAN Facility:[facility] Start: 02-18-2024 End: 04-02-2024 Physical therapy management TALISHA Heather [employer]LINE EDITOR [facility] Start: 02-12-2024 End: 02-12-2024 ambulatory TALISHA Heather [employer]LINE EDITOR Facility:[facility] Start: 02-12-2024 End: 02-12-2024 Patient encounter procedure TALISHA L MARROQUIN [employer]ONLINE EDITOR [facility] Start: 02-06-2024 End: 02-06-2024 ambulatory TALISHA Heather [employer]LINE EDITOR Facility:[facility] Start: 02-06-2024 End: 02-06-2024 Patient encounter procedure TALISHA MARROQUIN [employer]ONLINE EDITOR [facility] Start: 02-01-2024 End: 02-01-2024 ambulatory TALISHA MARROQUIN [employer]LINE EDITOR Facility:[facility] Start: 02-01-2024 End: 02-01-2024 Patient encounter procedure TALISHA MARROQUIN [employer]ONLINE EDITOR [facility] Start: 01-29-2024 End: 01-29-2024 ambulatory TALISHA MARROQUIN [employer]LINE EDITOR Facility:[facility] Start: 01-29-2024 End: 01-29-2024 Patient encounter procedure TALISHA MARROQUIN [employer]ONLINE EDITOR [facility] Start: 01-25-2024 End: 01-25-2024 ambulatory TALISHA MARROQUIN [employer]ONLINE EDITOR Facility:[facility] Start: 01-25-2024 End: 01-25-2024 Patient encounter procedure TALISHA MARROQUIN [employer]ONLINE EDITOR [facility] Start: 12-24-2023 End: 12-24-2023 ambulatory DELIA MAST [employer]LINE EDITOR Facility:[facility] Start: 12-24-2023 End: 12-24-2023 Patient encounter procedure DELIA MAST [employer]ONLINE EDITOR [facility] Start: 12-13-2023 End: 12-13-2023 Patient encounter procedure TALISHA MARROQUIN [employer]ONLINE EDITOR [facility] Start: 11-22-2023 End: 11-22-2023 ambulatory TALISHA MARROQUIN [employer]LINE EDITOR Facility: Start: 07-12-2022 End: 07-12-2022 Patient encounter procedure GUDELIA MAZA [employer] EDITOR [facility] Start: 05-18-2022 End: 05-18-2022 Patient encounter procedure ALPHONSO SIMENTAL [employer] EDITOR [facility] Start: 03-14-2022 End: 03-14-2022 Patient encounter procedure GUDELIA SHAUNNA [employer] EDITOR [facility] Start: 01-19-2022 End: 01-19-2022 Emergency department patient visit DR YAMILET MODI MD [facility] Procedures Date Procedure Procedure Detail Performing Clinician Start: 04-16-2003 Ophthalmic surgery (qualifier value) GUDELIA MAZA [employer] EDITOR Comment on above: Tightened the muscle in left eye Immunizations Immunization Date Immunization Notes Care Provider Fa [facility] 06-20-2022 tetanus toxoid, redu blanche diphtheria toxoid, and acellular pertussis vaccine, adsorbed; Translations: [Boostrix (Tdap)] GUDELIA MAZA [employer]ONLINE EDITOR [facility] 02-07-2022 influenza, injectabl e, quadrivalent, contains preservative; Translations: [Fluarix PF Quadrivalent ] GUDELIA MAZA [employer]ONLINE EDITOR [facility] Comment on above: Early/Late Reason: E alexandro/Late Reason: Other: 10-22-2020 SARS-CoV-2 (COVID-19 ) mRNA-1273 vaccine GUDELIA MAZA [employer] EDITOR [facility] 09-22-2020 SARS-CoV-2 (COVID-19 ) mRNA-1273 vaccine GUDELIA MAZA [employer]ONLINE EDITOR [facility] 08-15-2018 varicella virus vaccine PATRICIO SIE SHAUNNA [employer]LINE EDITOR [facility] 11-29-2016 meningococcal polysaccharide (groups A, C, Y and W-135) diphtheria toxoid conjugate vaccine (MCV4P) GUDELIA MAZA [employer]AY [employer] ASSEMBLER-ONLINE EDITOR [facility] [place] 11-22-2012 hepatitis A vaccine, pediatric dosage, unspecified formulation GUDELIA MAZA [employer] ASSEMBLER-ONLINE EDITOR [facility] [place] 11-22-2012 Human Papillomavirus Quadval GUDELIA MAZA [employer] ASSEMBLER-ONLINE EDITOR [facility] [place] 02-22-2012 Human Papillomavirus Quadval GUDELIA MAZA [employer] ASSEMBLER-ONLINE EDITOR [facility] [place] 02-22-2012 influenza virus vacc ine, unspecified formulation GUDELIA MAZA [employer] ASSEMBLER-ONLINE EDITOR [facility] [place] 11-24-2011 hepatitis A vaccine, pediatric dosage, unspecified formulation GUDELIA MAZA [employer] ASSEMBLER-ONLINE EDITOR [facility] [place] 11-24-2011 Human Papillomavirus Quadval GUDELIA MAZA [employer] ASSEMBLER-ONLINE EDITOR [facility] [place] 11-24-2011 tetanus toxoid, redu blanche diphtheria toxoid, and acellular pertussis vaccine, adsorbed GUDELIADARY MAZA LAY [employer] ASSEMBLER-ONLINE EDITOR [facility] [place] 07-12-2011 meningococcal polysaccharide (groups A, C, Y and W-135) diphtheria toxoid conjugate vaccine (MCV4P) GUDELIA MAZA [employer] ASSEMBLER-ONLINE EDITOR [facility] [place] 07-12-2011 varicella virus vaccine PATRICIO MAZA [employer]AY [employer] ASSEMBLER-ONLINE EDITOR [facility] [place] 02-24-2010 influenza virus vacc ine, unspecified formulation GUDELIA MAZA [employer] ASSEMBLER-ONLINE EDITOR [facility] [place] 08-03-2004 measles/mumps/rubell a virus vaccine GUDELIA MAZA [employer] ASSEMBLER-ONLINE EDITOR [facility] [place] 08-03-2004 poliovirus vaccine, inactivated GUDELIA MAZA [employer] ASSEMBLER-ONLINE EDITOR [facility] [place] 06-17-2002 haemophilus influenz ae type b conjugate and Hepatitis B vaccine GUDELIA MAZA [employer] ASSEMBLER-ONLINE EDITOR [facility] [place] 06-17-2002 poliovirus vaccine, inactivated GUDELIA MAZA [employer] ASSEMBLER-ONLINE EDITOR [facility] [place] 03-18-2001 haemophilus influenz ae type b conjugate and Hepatitis B vaccine GUDELIA MAZA [employer] ASSEMBLER-ONLINE EDITOR [facility] [place] 03-18-2001 measles/mumps/rubell a virus vaccine GUDELIA MAZA [employer] ASSEMBLER-ONLINE EDITOR [facility] [place] 05-25-2000 haemophilus influenz ae type b vaccine, PRP-T conjugate GUDELIA MAZA [employer] ASSEMBLER-ONLINE EDITOR [facility] [place] 05-25-2000 hepatitis B pediatri c vaccine GUDELIA MAZA [employer] ASSEMBLER-ONLINE EDITOR [facility] [place] 02-03-2000 haemophilus influenz ae type b vaccine, PRP-T conjugate GUDELIA MAZA [employer] ASSEMBLER-ONLINE EDITOR [facility] 02-03-2000 poliovirus vaccine, inactivated GUDELIA MAZA [employer] ASSEMBLER-ONLINE EDITOR [facility] Payers Date Payer Category Payer Unknown [id number] 2024 Private Health Insurance [id number] 2024 Unknown [id number] 2024 Medicaid [id number] 2024 Unknown [id number] 2024 Unknown [id number] 2024 Self-pay [id number] 2023 Private Health Insurance [id number] 1999 Unknown [id number] 2.16.8 40.1.709217.3.579.2. 1999 Unknown [id number] 2.16.8 40.1.325631.3.579.2. 1999 Unknown [id number] 2.16. 840.1.779141.3.579.2. 1999 Unknown [id number] 2.16.8 40.1.891825.3.579.2. 1999 Unknown [id number] 2.16.8 40.1.085729.3.579.2. 1999 Unknown [id number] 2.16.8 40.1.406080.3.579.2. 1999 Unknown [id number] 2.16.8 40.1.605944.3.579.2.7 1999 Unknown [id number] 2.16. 840.1.058423.3.579.2. 1999 Unknown [id number] 2.16.8 40.1.681182.3.579.2.627 1999 Unknown [id number] 2.16.8 40.1.773420.3.579.2.627 1999 Unknown [id number] 2.16.8 40.1.217182.3.579.2.627 1999 Unknown [id number] 2.16.8 40.1.887259.3.579.2.627 1999 Unknown [id number] 2.16.8 40.1.353154.3.579.2.627 1999 Unknown [id number] 2.16.8 40.1.188536.3.579.2.627 Unknown [id number] Unknown [id number] 2.16.8 40.1.067225.3.579.2.462 Unknown [id number] 2.16.8 40.1.646308.3.579.2.462 Social History Date Type Detail Facility Tobacco smoking status [facility] Start: 1999 Sex Assigned At Female A [facility] Start: 02-07-2022 End: 07-11-2022 Tobacco smoking status Never smoked tobacco (finding) [facility] Start: 01-19-2022 Sex Female (finding) [facility] Start: 07-28-2019 Tobacco Use Tobacco Use [facility] Functional Status Date Assessment Result Facility 01-19-2022 Functional Status Standard Safet y ID band on, Call device within reach, Bed in low position, Wheels locked, Upper/Half-Length side-rails up, Bedside Cart Locked, Safety level maintained [facility] Mental Status Date Assessment Result Facility 01-19-2022 Mental Status Orientation Oriented x 4 [facility] Clinical Notes 01-19-2022 to 12-12-2024 LaboratoryLaboratory Note Date & Type Note Facility 12-12-2024 Hospital Discharg e instructions Patient Education 12/12/2024 14:31:12 Understanding Uterine Bleeding Understanding Uterine Bleeding Your uterine bleeding may be heavy. Or you may have bleeding between periods. These problems may be caused by hormonal imbalance. Or they can be caused by uterine growths, an intrauterine device (IUD), bleeding disorder, or . Hormonal imbalance Your menstrual cycle is controlled by hormones. The hormones include estrogen and progesterone. Sometimes there is too much or too little of one or both of these hormones, causing an imbalance. This can cause heavy periods. Or it can cause bleeding between periods. Causes of hormonal imbalance can include: Hormonal changes in teens and in women nearing menopause Diabetes, thyroid disease, or other medical problems Obesity Stress Strenuous exercise Anorexia, an eating disorder Uterine growths There are different kinds of uterine growths. These include: Fibroids. These are round knots of noncancer (benign) muscle tissue in the uterus. Polyps. These are soft tissue growths in the uterine lining. They often extend into the uterus. Adenomyosis. This is when the uterine lining grows into the muscle wall. Hyperplasia. This is when the uterine lining gets too thick or grows too much. Endometrial cancer. This is uncontrolled growth of part of the uterine lining. Other causes of uterine bleeding There are other causes of uterine bleeding. These include: IUD (intrauterine device). This is a method of control. Some IUDs contain hormones. Bleeding disorders. This is when the blood can't clot properly. Treatment Your healthcare provider can help diagnose the cause of your bleeding problem. He or she will work with you to plan treatment as needed. [phone] [employer]. [address] [place] [address]. All rights reserved. This information is not intended as a substitute for professional medical care. Always follow your healthcare professional's instructions. Follow Up Care 12/12/2024 13:45:13 With:BOBBY GRANT DO Address: [address] [place] [address] [address] [place] [phone] When:2-4 days [facility] 12-12-2024 Note Discharge Instructions Thank you for allowing [facility] to assist you with your healthcare needs. The following is important discharge information regarding your hospital visit. Diagnosis from Today's Visit Vaginal bleeding What to Do Next Instructions from Your Care Team No qualifying data available. Post Acute Orders No qualifying data available. You Need to Schedule the Following Appointments Follow Up with BOBBY GRANT DO When:Within 2-4 days Where:[address] [place] [address]- [phone] Allergies Latex Strawberries Stomach pain Medications Please ask your primary doctor or pharmacist before taking any other medication not listed, including over the counter drugs, herbal medications, vitamins and or supplements as they may interact with your home medications. What How Much When Why Instructions Last Dose Unchanged albuterol (albuterol MDI (90 mcg/ inh) CFC free inhalation aerosol) 2 puff(s) by inhalation Every 4 hours as needed for as needed for wheezing Shortness of breath Chest tightness Duration: 90 Days Unchanged DME (DME MISCellaneous) See instructions Lower leg edema pair of compression stockings - either 10-15 or 15-20mmHG Unchanged ergocalciferol (ergocalciferol 50,000 intl units (1.25 mg) oral capsule) 1 cap by mouth Every week Duration: 90 Days Unchanged gabapentin (gabapentin 300 mg oral capsule) 1 cap by mouth Two (2) times a day Unchanged omeprazole (omeprazole 40 mg oral delayed release capsule) 1 cap by mouth Two (2) times a day Hiatal hernia with GERD Duration: 90 Days INCREASED DOSE Unchanged ondansetron (ondansetron 4 mg oral tablet) 1 tab(s) by mouth Every 8 hours as needed for Nausea Duration: 4 Days Unchanged propranolol (propranolol 20 mg oral tablet) 1 tab(s) by mouth Two (2) times a day Duration: 90 Days Unchanged riboflavin (B2-400 oral capsule) 1 cap by mouth Once a day Duration: 90 Days Please take this list to your next doctor s visit. Bring all medications you take, including over the counter medications, herbals and other supplements with you to your doctor s visit. Patients and families are reminded to discard old lists and to update any records with all medication providers or retail pharmacies. Education Materials Understanding Uterine Bleeding Your uterine bleeding may be heavy. Or you may have bleeding between periods. These problems may be caused by hormonal imbalance. Or they can be caused by uterine growths, an intrauterine device (IUD), bleeding disorder, or . Hormonal imbalance Your menstrual cycle is controlled by hormones. The hormones include estrogen and progesterone. Sometimes there is too much or too little of one or both of these hormones, causing an imbalance. This can cause heavy periods. Or it can cause bleeding between periods. Causes of hormonal imbalance can include: Hormonal changes in teens and in women nearing menopause Diabetes, thyroid disease, or other medical problems Obesity Stress Strenuous exercise Anorexia, an eating disorder Uterine growths There are different kinds of uterine growths. These include: Fibroids. These are round knots of noncancer (benign) muscle tissue in the uterus. Polyps. These are soft tissue growths in the uterine lining. They often extend into the uterus. Adenomyosis. This is when the uterine lining grows into the muscle wall. Hyperplasia. This is when the uterine lining gets too thick or grows too much. Endometrial cancer. This is uncontrolled growth of part of the uterine lining. Other causes of uterine bleeding There are other causes of uterine bleeding. These include: IUD (intrauterine device). This is a method of control. Some IUDs contain hormones. Bleeding disorders. This is when the blood can't clot properly. Treatment Your healthcare provider can help diagnose the cause of your bleeding problem. He or she will work with you to plan treatment as needed. [phone] [employer]. [address] [place] [address]. All rights reserved. This information is not intended as a substitute for professional medical care. Always follow your healthcare professional's instructions. Additional Information VACCINATE! IT SAVES LIVES! Members of the community who have not yet received the COVID-19 vaccine and would like to receive it can visit one of [facility] vaccine clinics. There are many vaccine clinic locations within the [facility]. For locations and available times, please visit [email or web address].[place]. [email or web address] It is important to note that some COVID mobile vaccine clinics are held outdoors and may be canceled in rainy or stormy conditions. To learn more about pediatric vaccinations (ages 5-11), we invite you to visit the [facility] webpage. https://www.[facility].org/p ages/9141-Djchz-Opiaiwxlxok-Freq ebvnxn-Jdvoq-Autelssrq.html To learn more about the COVID-19 vaccine, we invite you to visit the CDC website for a list of frequently asked questions. https://www.cdc.gov/coronavirus/ 2019-ncov/vaccines/faq.html [facility] Patient [facility] Access Instructions: Stay connected with your healthcare team and access your personal medical information anytime with the [employer] Patient Portal. If you would like a full copy of your medical records please contact the [facility] Medical Records Department Sunday through Sunday between 8a.m. and 4:30p.m. Please follow the directions below to access the portal: 1.Access the email account you provided upon registration to the [facility].2.Look for an invitation email from [facility].3.Open the email and access the invitation link: Accept Invitation to [facility]4.Fill in the required queen to create your account. Sign into www.[employer] with your username and password that you created in the above steps to stay up to date. You can then view a summary of results, a summary of your visits, and the ability to download your summaries to your computer or send the information securely to a physician. Remember that your healthcare information is confidential, so carefully consider who you will allow to register on the [employer] Patient Portal for access to your information. You can also access the [employer] Patient Portal on the [employer] moshe. Simply click on Health Records under Health Data and then click on the [employer] logo. HOW TO SAFELY DISPOSE OF PRESCRIPTION MEDICATIONS Please use one of the following methods to safely dispose of your unused medications. 1.Use a drug disposal kit: the drug disposal pouch allows you to safely discard your old and unused drugs. Ask your nurse to give you one when you are discharged.2.Visit a local take-back location: Many local pharmacies and police departments have programs that collect old and unwanted prescription drugs. Call your local pharmacy or go to http://bit.Moreboats/9Q4Yl1h to find one close to you.3.Make use of household items: Use cat litter or old coffee grounds to dispose medications if other options are not available. Mix your drugs with these household products, seal them in an airtight container and throw it into the garbage. Call [facility]: [phone] to be sure your drugs can be disposed of in this way. Some medicines may require a different approach.4.Never flush your medications down the toilet. IF YOU HAVE BEEN PRESCRIBED AN OPIOIDS FOR PAIN If you have been prescribed an opioid (such as hydrocodone, oxycodone or morphine), it is critical to understand the possible side effects and risks of opioid pain medications. Even when taken as directed, opioids can have several side effects including: Tolerance, meaning you might need to take more of a medication for the same pain relief. Nausea, vomiting and/or constipation. Sleepiness, dizziness, dry mouth, confusion, depression or itching. Physical dependence, meaning you have withdrawal symptoms when a medication is stopped ? this can develop within a few days. KNOW YOUR RESPONSIBILITIES It is important to know exactly how much and how often to take the opioid pain medications you are prescribed. Never take opioids in higher amounts or more often than prescribed. Do not combine opioids with alcohol or other drugs that cause drowsiness, such as benzodiazepines, also known as benzos, including diazepam and alprazolam, muscle relaxants or sleep aids. Never sell or share prescription opioids. This is illegal. Store opioids in a secure place and out of reach of others (including children, family, friends and visitors). The last page(s) of this document has been signed and retained as a CHART COPY Signatures Patient Education Materials Understanding Uterine Bleeding Medication Leaflets My discharge plan and instructions have been reviewed and explained to me and I,ASHLEY MEHTA understand my current condition and have read and understand these discharge instructions. I have received a written copy of the plan/instructions. If I have questions, I am aware that I should contact my doctor. 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 Indication Tachycardia/palpitations/shortne ss of breath/episodic dizziness/near syncope/blurred vision/bilateral leg weakness Location Noninvasive heart lab Technique This is a 23-year-old female who presents today for head up tilt table testing secondary to tachycardia/palpitation/shortnes s of breath/episodic dizziness/near syncope/blurred vision/bilateral leg weakness. Patient presented for an upright tilt table test in a fasting state. Presenting vital signs showed a heart rate of 96 bpm in normal sinus rhythm and a blood pressure of 138/96. Patient was then brought upright to a 70 degree position where the patient was monitored for the next 20 minutes with continuous EKG reading and intermittent blood pressure checks. --- Upon rising, the patient's heart rate was 130 bpm in sinus tachycardia with a blood pressure of 122/88. Endorsing lightheadedness/blurred vision/shakiness. At the 4-minute deepak, the patient's heart rate was 115 bpm in sinus tachycardia with a blood pressure of 118/84. Symptoms unchanged. At the 8-minute deepak, the patient's heart rate was 113 bpm in sinus tachycardia with a blood pressure of 104/80. Endorsing dizziness/blurred vision/sleepiness. At the 12-minute deepak, the patient's heart rate was 115 bpm in sinus tachycardia with a blood pressure of 108/80. Symptoms unchanged. At the 16-minute deepak, the patient's heart rate was 111 bpm in sinus tachycardia with a blood pressure of 104/78. Symptoms unchanged. At the 20-minute deepak, the patient's heart was 114 bpm in sinus tachycardia with a blood pressure of 102/80. Symptoms unchanged. Upon return to supine position, the patient's heart rate was 101 bpm in normal sinus rhythm with a blood pressure of 112/80. Endorsing symptom resolution. --- Bilateral carotid sinus massage was negative for change in EKG findings/symptoms. --- Assessment and Plan: 1. Abnormal study- the findings of the study are consistent with the diagnosis of autonomic dysfunction/dysautonomia. Correlate clinically. Digitally Signed by FIONA ALAMO on 04/03/2024 02:53 PM [facility] 02-01-2024 Evaluation + Plan note Future Scheduled TestsANA by IFA Screen 02/01/24Rheumatoid Factor 02/01/24 [facility] 02-01-2024 Note ORIGINAL EXAMINATION: MRI OF THE BRAIN WITHOUT CONTRAST 02/01/2024 1:12 pm TECHNIQUE: Multiplanar multisequence MRI of the brain was performed without the administration of intravenous contrast. COMPARISON: None. HISTORY: ORDERING SYSTEM PROVIDED HISTORY: Reason for Exam: persistent dizziness, fatigue, bilateral leg weakness, hand tremors, blurred vision, near syncope FINDINGS: INTRACRANIAL STRUCTURES/VENTRICLES: There is no acute infarct. No mass effect or midline shift. No evidence of an acute intracranial hemorrhage. The ventricles and sulci are normal in size and configuration. The sellar/suprasellar regions appear unremarkable. The normal signal voids within the major intracranial vessels appear maintained. ORBITS: The visualized portion of the orbits demonstrate no acute abnormality. SINUSES: Small retention cyst in the left maxillary sinus. The other visualized paranasal sinuses and mastoid air cells demonstrate no acute abnormality. BONES/SOFT TISSUES: The bone marrow signal intensity appears normal. The soft tissues demonstrate no acute abnormality. IMPRESSION: No acute intracranial abnormality. I have personally reviewed the images of this examination and agree with the resident's findings and interpretation. Interpreted by: Iker Syed MD Preliminary Report By: Jose Sanchez Electronically signed By Iker Syed MD Dictated Date: 02/01/2024 1:15:04 PM Prelim Date: 02/01/2024 1:44:44 PM Sign Date: 02/01/2024 1:44:44 PM Ordering Provider: TALISHA MARROQUIN [facility] 01-29-2024 Note Exam Date Time Procedure Performing Provider Status 01/29/24 4:02 PM Echocardiogram, Adult - CV Auth (Verified) [facility] 10-01-2024 Evaluation + Plan note Future Appointments Appointment Date:02/01/2024 01:00:00 PM Scheduled Provider: Location:[facility] Appointment Type:MRI Brain w/o Contrast Appointment Date:02/01/2024 03:30:00 PM Scheduled Provider:TALISHA MARROQUIN Location:[facility] Appointment Type:PC OV Future Scheduled Tests Radiology* MRI Brain w/o Contrast 02/01/24 [facility] [place] 10-06-2022 Hospital Discharge instructions Patient Education 01/19/2022 19:38:55 Chest Pain, Uncertain Cause Uncertain Causes of Chest Pain Chest pain can happen for a number of reasons. Sometimes the cause can't be determined. If your condition does not seem serious, and your pain does not appear to be coming from your heart, your healthcare provider may recommend watching it closely. Sometimes the signs of a serious problem take moretime to appear. Many problems not related to your heart can cause chest pain. These include: Musculoskeletal. Costochondritis is an inflammation of the tissues around the ribs that can occur from trauma or overuse injuries, or a strain of the muscles of the chest wall Respiratory. Pneumonia, collapsed lung (pneumothorax), or inflammation of the lining of the chest and lungs (pleurisy) Gastrointestinal. Esophageal reflux, heartburn, ulcers, or gallbladder disease Anxiety and panic disorders Nerve compression and inflammation Rare miscellaneous problems such as aortic aneurysm (a swelling of the large artery coming out of the heart) or pulmonary embolism (a blood clot in the lungs) Home care After your visit, follow these recommendations: Rest today and avoid strenuous activity. Take any prescribed medicine as directed. Be aware of any recurrent chest pain and notice any changes Follow-up care Follow up with your healthcare provider if you do not start to feel better within 24 hours, or as advised. Call 911 Call 911 if any of these occur: A change in the type of pain: if it feels different, becomes more severe, lasts longer, or begins to spread into your shoulder, arm, neck, jaw or back Shortness of breath or increased pain with breathing Weakness, dizziness, or fainting Rapid heart beat Crushing sensation in your chest When to seek medical advice Call your healthcare provider right away if any of the following occur: Cough with dark colored sputum (phlegm) or blood Fever of 100.4 F (38 C) or higher, or as directed by your healthcare provider Swelling, pain or redness in one leg [id number] [employer]. [address] [place] [address]. All rights reserved. This information is not intended as a substitute for professional medical care. Always follow yourhealthcare professional's instructions. Follow Up Care 01/19/2022 17:41:21 With:RAMA CARRINTGON MD Address: [place] [address]- When:2-4 days Comments:Return to ED if symptoms worsen [facility] 10-06-2022 Emergency department Discharge summary Discharge Instructions Thank you for allowing [facility] to assist you with your healthcare needs. The following is importantdischarge information regarding your hospital visit. Diagnosis from Today's Visit Chest pain What to Do Next Instructions from Your Care Team No qualifying data available. Post Acute Orders No qualifying data available. You Need to Schedule the Following Appointments Follow Up with RAMA CARRINGTON MD When Within 2-4 days Why: Return to ED if symptoms worsen Where: [place] [id number]- Allergies Latex Medications Please ask your primary doctor or pharmacist before taking any other medication not listed, including over the counter drugs, herbal medications, vitamins and or supplements as they may interact withyour home medications. Please take this list to your next doctor s visit. Bring all medications you take, including over the counter medications, herbals and other supplements with you to your doctor s visit. Patients and families are reminded to discard old lists and to update any records with all medication providers or retail pharmacies. Education Materials Uncertain Causes of Chest Pain Chest pain can happen for a number of reasons. Sometimes the cause can't be determined. If your condition does not seem serious, and your pain does not appear to be coming from your heart, your healthcare provider may recommend watching it closely. Sometimes the signs of a serious problem take moretime to appear. Many problems not related to your heart can cause chest pain. These include: Musculoskeletal. Costochondritis is an inflammation of the tissues around the ribs that can occur from trauma or overuse injuries, or a strain of the muscles of the chest wall Respiratory. Pneumonia, collapsed lung (pneumothorax), or inflammation of the lining of the chest and lungs (pleurisy) Gastrointestinal. Esophageal reflux, heartburn, ulcers, or gallbladder disease Anxiety and panic disorders Nerve compression and inflammation Rare miscellaneous problems such as aortic aneurysm (a swelling of the large artery coming out of the heart) or pulmonary embolism (a blood clot in the lungs) Home care After your visit, follow these recommendations: Rest today and avoid strenuous activity. Take any prescribed medicine as directed. Be aware of any recurrent chest pain and notice any changes Follow-up care Follow up with your healthcare provider if you do not start to feel better within 24 hours, or as advised. Call 911 Call 911 if any of these occur: A change in the type of pain: if it feels different, becomes more severe, lasts longer, or begins to spread into your shoulder, arm, neck, jaw or back Shortness of breath or increased pain with breathing Weakness, dizziness, or fainting Rapid heart beat Crushing sensation in your chest When to seek medical advice Call your healthcare provider right away if any of the following occur: Cough with dark colored sputum (phlegm) or blood Fever of 100.4 F (38 C) or higher, or as directed by your healthcare provider Swelling, pain or redness in one leg [id number] [employer] [address] [place] [address]. All rights reserved. This information is not intended as a substitute for professional medical care. Always follow yourhealthcare professional's instructions. Additional Information VACCINATE! IT SAVES LIVES! Members of the community who have not yet received the COVID-19 vaccine and would like to receive it can visit one of [facility] vaccine clinics. There are many vaccine clinic locations within the [facility]. For locations and available times, please visit [email or web address]. It is important to note that some COVID mobile vaccine clinics are held outdoors and may be canceled in rainy orstormy conditions. To learn more about pediatric vaccinations (ages 5-11), we invite you to visit the [facility] webpage. [email or web address]/[email or web address] stions.htmlTo learn more about the COVID-19 vaccine, we invite you to visit the [employer] website for a list of frequently asked questions. [email or web address]/[email or web address]-[email or web address]-[email or web address]-Bcsmsmq-Qqxpxvxopd _[email or web address]-Questions.pdf [facility] Access Instructions: Stay connected with your healthcare team and access your personal medical information anytime with the [facility]. If you would like a full copy of your medical records please contact the [facility] Medical Records Department Sunday through Sunday between 8a.m. and 4:30p.m. Please follow the directions below to access the portal: 1.Access the email account you provided upon registration to the [facility].2.Look for an invitation email from [facility].3.Open the email and access the invitation link: Accept Invitation to [facility]4.Fill in the required queen to create your account. Sign into www.[employer] with your username and password that you created in the above steps to stay up to date. You can then view a summary of results, a summary of your visits, and the ability to download your summaries to your computer or send the information securely to a physician. Remember that your healthcare information is confidential, so carefully consider who you will allow to register on the [facility] for access to your information. You can also access the [employer] Patient Portal on the [employer]. Simply click on Health Records under [employer] and then click on the [employer] logo. HOW TO SAFELY DISPOSE OF PRESCRIPTION MEDICATIONS Please use one of the following methods to safely dispose of your unused medications. 1.Use a drug disposal kit: the drug disposal pouch allows you to safely discard your old and unuseddrugs. Ask your nurse to give you one when you are discharged.2.Visit a local take-back location: Many local pharmacies and police departments have programs that collect old and unwanted prescriptiondrugs. Call your local pharmacy or go to http://bit.ly/0F1Kr7p to find one close to you.3.Make use of household items: Use cat litter or old coffee grounds to dispose medications if other options arenot available. Mix your drugs with these household products, seal them in an airtight container andthrow it into the garbage. Call [facility]: [phone] to be sure your drugs can be disposed of in this way. Some medicines may require a different approach.4.Never flush your medications down the toilet. IF YOU HAVE BEEN PRESCRIBED AN OPIOIDS FOR PAIN If you have been prescribed an opioid (such as hydrocodone, oxycodone or morphine), it is critical to understand the possible side effects and risks of opioid pain medications. Even when taken as directed, opioids can have several side effects including: Tolerance, meaning you might need to take more of a medication for the same pain relief. Nausea, vomiting and/or constipation. Sleepiness, dizziness, dry mouth, confusion, depression or itching. Physical dependence, meaning you have withdrawal symptoms when a medication is stopped ? this can develop within a few days. KNOW YOUR RESPONSIBILITIES It is important to know exactly how much and how often to take the opioid pain medications you are prescribed. Never take opioids in higher amounts or more often than prescribed. Do not combine opioids with alcohol or other drugs that cause drowsiness, such as benzodiazepines, also known as benzos,including diazepam and alprazolam, muscle relaxants or sleep aids. Never sell or share prescriptionopioids. This is illegal. Store opioids in a secure place and out of reach of others (including children, family, friends and visitors). The last page(s) of this document has been signed and retained as a CHART COPY Signatures Patient Education Materials Chest Pain, Uncertain Cause Medication Leaflets My discharge plan and instructions have been reviewed and explained to me and I,ASHLEY MEHTA understand my current condition and have read and understand these discharge instructions. I have receiveda written copy of the plan/instructions. If I have questions, I am aware that I should contact my do ctor. 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 HISTORY: ORDERING SYSTEM PROVIDED HISTORY: Reason for Exam: chest pain FINDINGS: Cardiomediastinal silhouette is normal in size No focal consolidation, pleural effusion or pneumothorax Osseous structures unremarkable. IMPRESSION: No focal consolidation or edema. Interpreted by: Osmani Perez Preliminary Report By: Osmani Perez Electronically signed By Osmani Perez Dictated Date: 01/19/2022 7:03:53 PM Prelim Date: 01/19/2022 7:04:13 PM Sign Date: 01/19/2022 7:04:13 PM Ordering Provider: [facility]10-06-2022 Note ORIGINAL EXAMINATION: ONE XRAY VIEW OF THE CHEST 01/19/2022 7:02 pm COMPARISON: None. HISTORY: ORDERING SYSTEM PROVIDED HISTORY: Reason for Exam: chest pain FINDINGS: Cardiomediastinal silhouette is normal in size No focal consolidation, pleural effusion or pneumothorax Osseous structures unremarkable. IMPRESSION: No focal consolidation or edema. Interpreted by: Osmani Perez Preliminary Report By: Osmani Perez Electronically signed By Osmani Perez Dictated Date: 01/19/2022 7:03:53 PM Prelim Date: 01/19/2022 7:04:13 PM Sign Date: 01/19/2022 7:04:13 PM [facility] No data available for this section [facility] Solar[facility] + Plan note Future Appointments Appointment Date:05/26/2022 02:00:00 PM Scheduled Provider:GUDELIA MAZA Location:[facility] Appointment Type:PC OV Follow Up Future Scheduled Tests Radiology* US Abdomen Limited 03/03/22 [facility] Evaluation + Plan note Future Appointments Appointment Date:05/26/2022 02:00:00 PM Scheduled Provider:GUDELIA MAZA Location:[facility] Appointment Type:PC OV Follow Up Future Scheduled Tests Radiology* US Abdomen Limited 04/25/22 [facility] Evaluation + Plan note Future Appointments Appointment Date:09/14/2022 10:45:00 AM Scheduled Provider: Location:[facility] Appointment Type:PC Nurse Lab Appointment Date:09/22/2022 11:00:00 AM Scheduled Provider:GUDELIA MAZA Location:[facility] Appointment Type:PC OV Follow Up Future Scheduled Tests Laboratory* Complete Metabolic Panel 06/20/22 [facility] Evaluation + Plan note Future Appointments Appointment Date:12/14/2023 02:30:00 PM Scheduled Provider:TALISHA MARROQUIN Location:[facility] [place] Appointment Type:PC OV Appointment Date:12/24/2023 02:00:00 PM Scheduled Provider:DEEPAK RINCON MD Location:[facility] [place] Appointment Type:GS DIRECTOR OF CLINICAL APPLICATIONS [facility] Evaluation + Plan note Future Appointments Appointment Date:01/01/2024 09:00:00 AM Scheduled Provider:TALISHA MARROQUIN Location:[facility] [place] Appointment Type:PC OV [facility] Evaluation + Plan note Future Appointments Appointment Date:01/28/2024 02:00:00 PM Scheduled Provider:DEEPAK RINCON MD Location[facility] [place] Appointment Type:GS DIRECTOR OF CLINICAL APPLICATIONS Appointment Date:01/29/2024 01:00:00 PM Scheduled Provider: Location:[facility] Appointment Type:Echo - Echocardiogram Adult Appointment Date:02/01/2024 01:00:00 PM Scheduled Provider: Location:[facility] Appointment Type:MRI Brain w/o Contrast Appointment Date:02/01/2024 03:30:00 PM Scheduled Provider:TALISHA MARROQUIN Location:[facility] [place] Appointment Type:PC OV Future Scheduled Tests Radiology* MRI Brain w/o Contrast 02/01/24 [facility] evaluation + Plan note Future Appointments Appointment Date:02/12/2024 03:00:00 PM Scheduled Provider:TALISHA MARROQUIN Location:[facility] [place] Appointment Type:PC OV Diagnostic Tests Pending * YOVANA by IFA Screen 02/06/24 * Rheumatoid Factor 02/06/24 [facility] Evaluation + Plan note Future Appointments Appointment Date:02/28/2024 03:00:00 PM Scheduled Provider:TALISHA MARROQUIN Location:[facility] [place] Appointment Type:PC OV [facility] Evaluation + Plan note Future Appointments Appointment Date:04/03/2024 02:00:00 PM Scheduled Provider: Location:[facility] Appointment Type: Tilt Table Appointment Date:04/07/2024 01:30:00 PM Scheduled Provider:TALISHA MARROQUIN Location:[facility] [place] Appointment Type:PC OV Appointment Date:04/25/2024 10:00:00 AM Scheduled Provider:GREG KANG Location:[facility] [place] Appointment Type: DIRECTOR OF CLINICAL APPLICATIONS [facility] Evaluation + Plan note Future Appointments Appointment Date:04/07/2024 01:30:00 PM Scheduled Provider:TALISHA MARROQUIN Location:[facility] [place] Appointment Type:PC OV Appointment Date:04/25/2024 10:00:00 AM Scheduled Provider:GREG KANG Location:[facility] [place] Appointment Type:[facility] Evaluation + Plan note Future Appointments Appointment Date:05/15/2024 02:00:00 PM Scheduled Provider:TALISHA MARROQUIN Location:[facility] [place] Appointment Type:PC OV Future Scheduled Tests Laboratory* Basic Metabolic Panel 04/25/24 * Complete Blood Count 04/13/24 [facility] Evaluation + Plan note Future Appointments Appointment Date:05/15/2024 02:00:00 PM Scheduled Provider:TALISHA MARROQUIN Location:[facility] [place] Appointment Type:PC OV Diagnostic Tests Pending * Lyme Disease Serology w/Reflex 04/25/24 * Vitamin B1 (Thiamine), Blood 04/25/24 Future Scheduled Tests Laboratory* Basic Metabolic Panel 04/25/24 * Complete Blood Count 04/13/24 [facility] Evaluation noteNo assessment information available [facility] Work Phone: Hospital Discharge instructions No data available for this section [facility] Note* TIARA ROJAS MD: SIGN, VERIFY Event Display: EKG [ED AOH] - CV Authored Date: [id number] [facility] Progress note No data available for this section [facility] Reason for referral (narrative)No reason for referral [facility] Work Phone: Summary Purpose Family History No Family History Records FoundNo Family History Records Found No data available for this section No data available for this section No data available for this section No data available for this section No data available for this section No data available for this section No data available for this section No data available for this section No data available for this section No data available for this section No data available for this section No Family History Records FoundNo Family History Records Found No data available for this section No Family History Records Found Advance Directives No Advanced Directives Records FoundNo Advanced Directives Records FoundNo Advanced Directives Records FoundNo Advanced Directives Records FoundNo Advanced Directives Records Found Chief Complaint and Reason for Visit Chief Complaint Admit Date PE/NON DOT DRUG & BAT/IGOR BRUSH Aug[facility] 2024 2:59pm Additional Source Comments INFORMATION SOURCE (unrecogn ized section and content) DATE CREATED AUTHOR 11/05/2020 [facility] DATE CREATED AUTHOR AUTHOR'S ORGANIZ ATION 11/28/[address] [facility] ([place]) DATE CREATED AUTHOR AUTHOR'S ORGANIZ ATION 04/28/2024 [facility] DATE CREATED AUTHOR AUTHOR'S ORGANIZ ATION 11/22/2024 [facility] DATE CREATED AUTHOR AUTHOR'S ORGANIZ ATION 12/20/[address] [place] [address] Care Team (unrecognized sect ion and content) Care Team Personnel Name: RAMA CARRINGTON MD Member Role: Primary Care Physician Address: Address: [address] [place] [id number]- Care Team Personnel Name: GUDELIA MAZA APRN-ONLINE EDITOR Position: P4 Advanced Practice Nurse Member Role: Primary Care Physician Address: Address: [address] [place] [id number]- Care Team Related Persons Name: CARMEN KNOWLES Address: Home [address] [phone] [place] Care Team Personnel Name: GUDELIA MAZA APRN-ONLINE EDITOR Position: P4 Advanced Practice Nurse Member Role: Primary Care Physician Address: Address: [address] [place] [id number] [place] Care Team Related Persons Name: CARMEN KNOWLES Address: [place] [address] [place] [phone] [place] Patient Care team informatio n (unrecognized section and content) Team Status: Active Member Role/Relationship Status Dates Dr. Rama Carrignton MD Family Provider Active Dr. Rama Carrington MD Primary Care Provider Active Team Status: Inactive Member Role/Relationship Status Dates Dr. Rama Carrington MD Primary Care Provider Active Start: November 14, 2024 End: November 14, 2024 Dr. Rama Carrington MD Referring Provider Active Start: November 14, 2024 End: November 14, 2024 Morro CORNEJO PA Attending Provider Active Sta rt: November 14, 2024 End: November 14, 2024 Goals (unrecognized section and content) Goals may be documented in a n alternate section FOR RECORDS PERTAINING TO PATIENTS WHO ARE OR HAVE BEEN ENROLLED IN A CHEMICAL DEPENDENCY/SUBSTANCEABUSE PROGRAM, SOME INFORMATION MAY BE OMITTED. This clinical summary was aggregated from multiple sources. Caution should be exercised in using it in the provision of clinical care. This summary normalizes information from multiple sources, and as a consequence, information in this document may materially change the coding, format and clinical context of patient data. In addition, data may be omitted in some cases. CLINICAL DECISIONS SHOULD BE BASED ON THE PRIMARY CLINICAL RECORDS. [facility] [employer] provides no warranty or guarantee of the accuracy or completeness of information in this document.
[2025-04-09 19:01] LABS: Hematocrit 37.2 % (37-47); Hemoglobin 11.6 g/dL (12.0-15.0); Immature Granulocytes Count 0.020 X10^3/uL (0.0-0.0); Mean Corp Hgb Conc 31.2 g/dL (32-36); Mean Corpuscular Volume 87.9 fL (81-99); Mean Platelet Vol. 10.6 fl (6.2-12.0); NRBC Flagged by Analyzer 0 % (0-5); Platelet Count 413 K/mm3 (150-450); RBC Distribution Width CV 15.2 % (11.6-14.6); RBC Distribution Width SD 48.8 fl (35.1-43.9); Red Blood Count 4.23 M/mm3 (4.2-5.4); White Blood Count 8.1 K/mm3 (4.4-11.0)
[2025-04-09 19:20] LABS: Lipase 22 U/L (13-75)
[2025-04-09 19:21] LABS: AST(SGOT) 35 U/L (<=31); Alanine Aminotransfer ALT/SGPT 58 U/L (<=34); Albumin, Serum 4.2 g/dL (3.5-5.0); Alkaline Phosphatase 66 U/L (35-104); Anion Gap 11 (7-18); BUN 15 mg/dL (4-19); BUN/Creat Ratio 19.4 RATIO (10-20); Calcium,Total 9.5 mg/dL (7.6-11.0); Carbon Dioxide 24.6 mmol/L (20.0-29.0); Chloride 103 mmol/L (96-106); Estimated Creatinine Clearance 169.48 ml/min (50-250); Globulin 3.2 g/dL (2.2-4.2); Glucose 111 mg/dL (70-99); Potassium 3.9 mmol/L (3.5-5.1)
[2025-04-09 19:53] VITALS: PULSE 78; RESP 16; O2SAT 98
[2025-04-09 19:56] LABS: Color, Urine Yellow (Yellow); Glucose, Dipstick Normal (Normal); Ketone-Dipstick Negative (Negative); Leukocyte Esterase-Dipstick Negative /ul (Negative); Nitrite-Dipstick Negative (Negative); Occult Blood-Urine Negative /ul (Negative); Protein-Dipstick 15 mg/dl (Negative); Specific Gravity, Urine 1.020 (1.002-1.030); Urine Bilirubin Dipstick Negative (Negative)
[2025-04-09 21:00] VITALS: BP 118/78; PULSE 69; RESP 16; TEMP 37.1; O2SAT 100
[2025-04-09 21:16] LABS: Red Blood Cells-Urine 5-10 SEEN /hpf (0-5); Squamous Epithelial Cells - UA 5-10 SEEN /hpf (5-10)
[2025-04-09 21:17] LABS: Internal QC Validated? YES +Cl - CLEAR BKGD; Mucous, Urine 1+ /hpf (<or=2+); Pregnancy, Urine Negative Negative
--- NOTE | 2025-04-09 22:02 | EKG12_ITS ---
Test Reason : CP Blood Pressure : */* mmHG Vent. Rate : 73 BPM Atrial Rate : 73 BPM P-R Int : 152 ms QRS Dur : 84 ms QT Int : 412 ms P-R-T Axes : 28 36 57 degrees QTcB Int : 453 ms Normal sinus rhythm Normal ECG Confirmed by Lebron Umanzor ([id number]), editor department WINIFRED BOSE ([id number]) on 04/10/2025 8:25:22 AM Referred By: JESUS Confirmed By: Lebron Umanzor
--- NOTE | 2025-04-09 22:10 | RAD_ITS ---
PROCEDURE: CHEST PA AND LATERAL 04/09/2025 REASON FOR EXAM: Chest pain TECHNIQUE: Procedure Code: RADCXR Modality: DX Procedure: CHEST PA AND LATERAL COMPARISON: Chest radiograph 07/28/2019 FINDINGS: Low lung volumes bilaterally likely secondary to patient body habitus. No focal lung consolidation, pneumothorax, or pleural effusion. The cardiomediastinal silhouette is within normal limits. The alpesh are within normal limits. The osseous structures are unremarkable. RAD/Chest PA and Lateral IMPRESSION: Low lung volumes bilaterally likely secondary to patient body habitus. No foca l lung consolidation. No pneumothorax. Reading Location: [id number]
[2025-04-09 23:00] VITALS: BP 114/76; PULSE 70; RESP 16; TEMP 37.1; O2SAT 98
[2025-04-09 23:44] VITALS: BP 120/78; PULSE 92; RESP 18; TEMP 36.6; O2SAT 98
== END 2025-04-09 23:47 | disposition home or self-care (01) ==
PROVIDERS: Emergency Provider Emergency Medicine; PCP Nurse Practitioner Family; Visit Provider Emergency Medicine
DX: R11.0 Nausea (principal); R19.7 Diarrhea, unspecified; R53.81 Other malaise; R53.83 Other fatigue; K21.9 Gastro-esophageal reflux disease without esophagitis; D64.9 Anemia, unspecified
CPT/HCPCS: 71046; 80053; 81001; 81025; 83690; 85025; 87631; 93005; 96361; 96374; 99283; A4216; J2405